=== PATIENT | male | born 1935 | race Caucasian/White ===

== ENCOUNTER → 2016-09-28 | Outpatient (CLI) | payer OTHER ==
[~2016-09-28] MED LIST: AMOXICILLIN500 MG; ASPIRIN EC325 MG; ASPIRIN325 MG PO; DARVOCET N 1001 TAB PO; DAYPRO600 M1 PO; GLIPIZIDE10 MG; GLIPIZIDE10 MG PO; GLUCOPHAGE1000 MG; JANUVIA50 MG PO; LEVEMIR10 ML SC; LEVOFLOXACIN500 MG PO; LISINOPRIL10 MG PO; MEDROL DOSEPAK4 MG PO; METFORMIN1000 MG PO; PLAVIX75 MG; PLAVIX75 MG PO; PRINIVIL5 MG; SIMVASTATIN80 MG; SIMVASTATIN80 MG PO; TYLENOL W/CODEI1 TA7; [UNRECOGNIZED DRUG - SUPPLY]
--- NOTE | ~2016-09-28 | PR ---
[place], [place] PROGRESS NOTE NAME: NIKI DAY UNIT #: [id number] ROOM: DOCTOR: JACOB GALVAN DPM BIRTHDATE: [birth year] DOS: 09/28/2016 SUBJECTIVE: The patient is seen for right plantar foot wound. The patient has had Hyaloxmatrix applied last week. He has left his bandage on, clean, dry and intact as directed and has no new complaints. PHYSICAL EXAMINATION: It is noted that the wound is decreasing in size quite readily. It currently measures 1.8 cm x 0.9 cm x 0.1 cm. Callus debris and slough was debrided with 15 blade from the surrounding tissue area. The patient tolerated procedure well. The debridement went through dermis. No bleeding was noted. IMPRESSION: Grade 2 diabetic ulceration, progressing well with current therapy. PLAN: 1. Evaluate. 2. We will use Puracol collagen and offloading bulky dressing and patient is to continue to ambulate in a surgical shoe. The patient will be seen next week as a nurse visit and then I will follow him up the next week in my clinic. He is to call if any problems arise in the meantime. JACOB GALVAN DPM CM:PK [phone] JACOB GALVAN DPM 09/28/16 1239 interface
== END ==
LOC: WOUNDCARE 03:10
DX: E11.621 Type 2 diabetes mellitus with foot ulcer (principal); L97.511 Non-pressure chronic ulcer of other part of right foot limited to breakdown of skin; L84 Corns and callosities

== ENCOUNTER → 2016-10-05 | Outpatient (CLI) | payer OTHER | LOC: WOUNDCARE 01:48 | DX: E11.621 Type 2 diabetes mellitus with foot ulcer (principal); L97.511 Non-pressure chronic ulcer of other part of right foot limited to breakdown of skin ==

== ENCOUNTER → 2016-10-12 | Outpatient (CLI) | payer OTHER ==
--- NOTE | ~2016-10-12 | PR ---
[place], [place] PROGRESS NOTE NAME: NIKI DAY UNIT #: [id number] ROOM: DOCTOR: JACOB GALVAN DPM BIRTHDATE: [birth year] DOS: 10/12/2016 SUBJECTIVE: This is an established patient seen for a diabetic grade 2 ulceration on the right plantar foot. He has kept his big football bandage on clean, dry, and intact, has no new complaints. PHYSICAL EXAMINATION: It is noted that the wound is significantly decreased in size at 1.2 cm x 0.5 cm x 0.1 cm. Callus tissue was debrided through dermis with a 15 blade and the patient tolerated procedure well. No bleeding was noted. IMPRESSION: Grade 2 diabetic ulceration, progressing very well with current therapy. PLAN: 1. Evaluate. 2. Debridement was performed. It is described above. We will reapply a football type bandage with Puracol to the base of the wound. Offloading layer of felted foam, ABDs, Kerlix, and Coban. The patient is to keep this on clean, dry, and intact for one week and then [facility] for followup next Tuesday. JACOB GALVAN DPM CM:[id number] JACOB GALVAN DPM 10/12/16 3478 interface
== END | disposition home or self-care (01) ==
LOC: WOUNDCARE 02:42
DX: E11.621 Type 2 diabetes mellitus with foot ulcer (principal); L97.511 Non-pressure chronic ulcer of other part of right foot limited to breakdown of skin; L84 Corns and callosities

== ENCOUNTER → 2016-10-19 | Outpatient (CLI) | payer OTHER ==
--- NOTE | ~2016-10-19 | PR ---
[place], [place] PROGRESS NOTE NAME: NIKI DAY UNIT #: [id number] ROOM: DOCTOR: JACOB GALVAN DPM BIRTHDATE: [birth year] DOS: 10/19/2016 SUBJECTIVE: The patient is seen for right plantar foot grade 2 diabetic ulceration. The patient has kept his football-type bandage on clean, dry, and intact and has no new complaints. PHYSICAL EXAMINATION: It is noted that the wound is healing. Currently, it measures 1 x 0.5 x 0.1 cm. Callus tissue and debris was debrided from the base of the tissue through dermis. Minimal bleeding was controlled with pressure. No signs of infection. IMPRESSION: Grade 2 diabetic ulcer, progressing very well with current therapy. PLAN: 1. Evaluate. 2. Debridement was performed. We will reapply Puracol and a football-type dressing. The patient will keep this on clean, dry, and intact and reappoint in 1 week. With any luck hopefully, this will be healed next week or the following week. JACOB GALVAN DPM CM:PK [id number] JACOB GALVAN DPM 10/20/16 1305 interface
== END ==
LOC: WOUNDCARE 03:28
DX: E11.621 Type 2 diabetes mellitus with foot ulcer (principal); L97.511 Non-pressure chronic ulcer of other part of right foot limited to breakdown of skin; L84 Corns and callosities

== ENCOUNTER → 2016-12-13 | Outpatient (CLI) | payer OTHER ==
[2016-12-13 09:51] LABS: BASO # 0.1 10*3/uL (0.0-0.1); BASO % 0.6 % (0.0-1.0); EOS # 0.2 10*3/uL (0.0-0.4); EOS % 2.4 % (1.0-4.0); HEMATOCRIT 34.8 % (42.0-52.0); HEMOGLOBIN 11.3 g/dl (14.0-18.0); LYMPH # 1.3 10*3/uL (1.3-4.4); LYMPH % 16.3 % (27.0-41.0); MEAN CELL VOLUME 83.3 fl (80.0-94.0); MEAN CORPUSCULAR HGB CONC 32.5 g/dl (33.0-37.0); MEAN PLATELET VOLUME 9.9 fl (9.6-12.3); MONO # 0.5 10*3/uL (0.1-1.0); NEUT % 74.2 % (47.0-73.0); PLATELET COUNT AUTOMATED 283 10*3/uL (130-400); RED BLOOD COUNT 4.18 10*6/uL (4.50-5.90); RED CELL DISTRI WIDTH 14.2 % (0-14.5); WHITE BLOOD COUNT 8.1 10*3/uL (4.8-10.8)
[2016-12-13 10:15] LABS: HEMOGLOBIN A1c 8.6 % (4.8-5.6)
[2016-12-13 10:27] LABS: ALBUMIN 2.6 gm/dl (3.1-4.5); BUN 9 mg/dl (7-24); CARBON DIOXIDE 29 mmol/L (21-32); CHLORIDE 101 mmol/L (98-107); GLUCOSE 329 mg/dL (65-99); POTASSIUM 3.8 mmol/L (3.5-5.1); SODIUM 140 mmol/L (136-145)
[2016-12-13 10:31] LABS: ALKALINE PHOSPHATASE 109 U/L (45-117); BILIRUBIN, TOTAL 0.3 mg/dl (0.2-1.0); EST GLOM FILT AFRICAN AMERICAN > 60 ml/min; SGOT/AST 12 IU/L (3-35); SGPT/ALT 14 U/L (12-78); TOTAL PROTEIN 6.9 gm/dL (6.4-8.2)
== END | disposition home or self-care (01) ==
LOC: LAB 09:24
PROVIDERS: Podiatrist Foot & Ankle Surgery
DX: E11.621 Type 2 diabetes mellitus with foot ulcer (principal); L97.519 Non-pressure chronic ulcer of other part of right foot with unspecified severity

== ENCOUNTER → 2016-12-13 | Outpatient (CLI) | payer OTHER ==
--- NOTE | ~2016-12-13 | PR ---
[place], [place] PROGRESS NOTE NAME: NIKI DAY [facility] #: [id number] UNIT #: [id number] ROOM: DOCTOR: RAFAEL ArguelloSABI BIRTHDATE: [birth year] DOS: 12/13/2016 CHIEF COMPLAINT: Followup of a diabetic foot ulcer. HISTORY OF PRESENT ILLNESS: The location of the wound is the plantar aspect of the right foot near the first metatarsal head. It is chronic and recurrent. It is grade 2. He has associated neuropathy, history of peripheral vascular disease. Recent culture grew Staph aureus as well as Enterobacter. He was placed initially on doxycycline. This was switched to ciprofloxacin, which covers both bacteria. He has difficulty offloading the area and comes in for a repeat evaluation today. This is Dr. Lal's patient. This is the first time I am seeing him as he normally sees Dr. Lal and she is unavailable this week. He has no specific complaints. He does complain of pain, but he says it is pain at the pinky toe of the right foot and his heel. He does not complain of pain near the wound. He is on oral antibiotics and is tolerating these. He has no fevers or chills. He has no complaints of any change in drainage. His physical exam shows vitals that are stable. Blood pressure is 138/90, pulse is 60, respirations 18, and temperature 98.4. ADDENDUM OBJECTIVE: wound examination: The wound is measuring the same as last week at 1.7 x 1.1 x 0.2. There is very thick amount of callus present. The wound itself does not appear tender. It does seem to have some chronic erythema present. A debridement was done. The tissue removed was nonviable callus as well as fibrin, slough and subcutaneous tissue. This was accomplished with a curette and a #15 blade. The post-debridement measurements are 1.9 x 1.2 x 0.2 in depth. There was absolutely no bleeding. The patient tolerated the debridement well. ASSESSMENT AND PLAN: Chronic diabetic foot ulcer, Amezquita stage 2, continued callus formation. He has not had any blood work done for some time, so I will go ahead and order some labs for him and see where his diabetic control is at. In addition, he has not had any recent vascular studies, so I would like to go ahead and order those as when I did further discuss with him that testing he said he has had intervention done in the past several years ago at [facility], so he does have a history of peripheral vascular disease as well, so we will go ahead and order that study. We will continue with a silver dressing and have him follow up with Dr. Lal in 1 week. Also, an MRI was ordered as well as the wound has been open for some time now, so this was also ordered. Follow up with Dr. Lal next week. [place], [place] PROGRESS NOTE NAME: NIKI DAY UNIT #: [id number] ROOM: DOCTOR: SABI HALL M.D. BIRTHDATE: [birth year] SABI HALL MD CM:PK [id number] SABI HALL M.D. 12/16/16 0647 interface
== END ==
LOC: WOUNDCARE 01:40
DX: E11.621 Type 2 diabetes mellitus with foot ulcer (principal); L97.512 Non-pressure chronic ulcer of other part of right foot with fat layer exposed; E11.51 Type 2 diabetes mellitus with diabetic peripheral angiopathy without gangrene; E11.40 Type 2 diabetes mellitus with diabetic neuropathy, unspecified

== ENCOUNTER → 2016-12-21 | Outpatient (CLI) | payer OTHER ==
--- NOTE | ~2016-12-21 | PR ---
[place], [place] PROGRESS NOTE NAME: NIKI DAY UNIT #: [id number] ROOM: DOCTOR: JACOB GALVAN DPM BIRTHDATE: [birth year] DOS: 12/21/2016 SUBJECTIVE: This is an established patient seen for plantar surface, right foot grade 2 diabetic ulcer. The patient had been seen last week by Dr. Hale and presents wearing his regular shoes and no offloading to the area. Apparently last week she ordered arterial studies as well as an MRI although x-rays were negative for any kind of bony abnormalities. PHYSICAL EXAMINATION: It is noted that the wound measures 1.8 x 1.1 x 0.2 cm. Negligible erythema or edema. No signs of infection, no odor. No deep tracking or abscess noted. There is callus tissue around the periphery of the wound, which was debrided through to dermis with a 15 blade. No bleeding was noted. The patient tolerated procedure well. IMPRESSION: Grade 2 diabetic ulceration on plantar surface of the right foot without any evidence of abscess or osteomyelitis. PLAN: 1. Evaluate. 2. Debridement was performed. We will use Puracol to the base of the wound felted foam dressing and a bulky padded football bandaged. Bandages to stay on clean, dry, and intact for 1 full week. I would like to see the patient back at the wound care center at that time for followup of this complaint. JACOB GALVAN DPM CM:PNTRANS [phone] JACOB GALVAN DPM 12/21/16 2020 interface
== END ==
LOC: WOUNDCARE 03:11
DX: E11.621 Type 2 diabetes mellitus with foot ulcer (principal); L97.512 Non-pressure chronic ulcer of other part of right foot with fat layer exposed; E11.51 Type 2 diabetes mellitus with diabetic peripheral angiopathy without gangrene

== ENCOUNTER → 2016-12-23 | Outpatient (CLI) | payer OTHER | END | disposition home or self-care (01) | LOC: US 12:28 | DX: S91.301A Unspecified open wound, right foot, initial encounter (principal); I73.9 Peripheral vascular disease, unspecified; E11.621 Type 2 diabetes mellitus with foot ulcer; M25.474 Effusion, right foot; Z89.431 Acquired absence of right foot; X58.XXXA Exposure to other specified factors, initial encounter; Y93.89 Activity, other specified; Y92.89 Other specified places as the place of occurrence of the external cause; Y99.8 Other external cause status ==

== ENCOUNTER → 2016-12-28 | Outpatient (CLI) | payer OTHER ==
--- NOTE | ~2016-12-28 | PR ---
[place], [place] PROGRESS NOTE NAME: NIKI DAY UNIT #: [id number] ROOM: DOCTOR: JACOB GALVAN DPM BIRTHDATE: [birth year] DOS: 12/28/2016 SUBJECTIVE: This is an established patient seen for right plantar foot grade 2 diabetic ulcer. The patient has left his football bandage dry, clean and intact without any new complaints. PHYSICAL EXAMINATION: It is noted that the ulcer looks good, it is very superficial, it is measuring 1.8 cm x 1 cm x 0.1 cm. There is a bit of callus around the periphery and some slough in the base of the wound. These areas were debrided with 15 blade through subcutaneous. Minimal bleeding was controlled with pressure. No signs of acute infection, cellulitis or abscess. IMPRESSION: Grade 2 diabetic ulceration, progressing well. PLAN: 1. Evaluate. 2. Dressing consisting of Hyalomatrix was applied to the area after an excisional debridement through subcutaneous was performed. A dry bulky football bandage was applied. The patient is to keep this on clean, dry, and intact for 1 week and to reappoint next week at the wound care center for a nurse visit. JACOB GALVAN DPM CM:PK [id number] JACOB GALVAN DPM 12/28/16 1152 interface
== END ==
LOC: WOUNDCARE 04:00
DX: E11.621 Type 2 diabetes mellitus with foot ulcer (principal); L97.512 Non-pressure chronic ulcer of other part of right foot with fat layer exposed; E11.51 Type 2 diabetes mellitus with diabetic peripheral angiopathy without gangrene; L84 Corns and callosities

== ENCOUNTER → 2017-01-04 | Outpatient (CLI) | payer OTHER | LOC: WOUNDCARE 01:54 | DX: E11.621 Type 2 diabetes mellitus with foot ulcer (principal); L97.512 Non-pressure chronic ulcer of other part of right foot with fat layer exposed; E11.51 Type 2 diabetes mellitus with diabetic peripheral angiopathy without gangrene ==

== ENCOUNTER → 2017-01-11 | Outpatient (CLI) | payer OTHER ==
--- NOTE | ~2017-01-11 | PR ---
[place], [place] PROGRESS NOTE NAME: NIKI DAY UNIT #: [id number] ROOM: DOCTOR: JACOB GALVAN DPM BIRTHDATE: [birth year] DOS: 01/11/2017 SUBJECTIVE: The patient was seen for plantar surface grade 2 diabetic ulceration, right foot. The patient has kept his football bandage on, clean, dry and intact. PHYSICAL EXAMINATION: It is noted that the wound is decreasing in size. Today, it currently measures 0.4 x 0.7 x 0.2 cm. Moderate callus tissue is found around the periphery of the wound. The base of the wound is relatively clean and healthy. No signs of infection noted. There was an area of excoriation on the dorsum of the foot, and this will be padding and protected today. IMPRESSION: Grade 2 diabetic ulceration, doing well with current therapies. PLAN: 1. Evaluate. 2. Debridement through to dermis was performed to remove callus tissue. Bleeding was noted afterwards in which silver nitrate was used to help control the area of bleeding, no signs of infection. The patient tolerated procedure well. We will put a football type bandage with a horseshoe padded dressing. The patient is to keep this on clean, dry, and intact for 1 week. He is to continue to wear his surgical shoe and will see him next week for his followup. He is to call if any problems arise in the meantime. JACOB GALVAN DPM CM:PNTRANS [phone] JACOB GALVAN DPM 01/11/1712 interface
== END ==
LOC: WOUNDCARE 04:19
DX: E11.621 Type 2 diabetes mellitus with foot ulcer (principal); L97.512 Non-pressure chronic ulcer of other part of right foot with fat layer exposed; E11.51 Type 2 diabetes mellitus with diabetic peripheral angiopathy without gangrene

== ENCOUNTER → 2017-01-18 | Outpatient (CLI) | payer OTHER ==
--- NOTE | ~2017-01-18 | PR ---
[place], [place] PROGRESS NOTE NAME: NIKI DAY UNIT #: [id number] ROOM: DOCTOR: COLE WATSONFRANCShey BIRTHDATE: [birth year] DOS: 01/18/2017 SUBJECTIVE: This is an established patient seen at [facility] for followup of right plantar foot wound. The patient also has a new complaint. He had a fall in his bedroom and scraped his lower leg on his bed. He has multiple new wounds secondary to this recent trauma. PHYSICAL EXAMINATION: It is noted that the right foot plantar injury, diabetic grade 2 ulcer measures 1.4 cm x 0.5 cm x 0.2 cm. An abundance of callus tissue and debris noted around the wound itself. This area was debrided through dermis with a 15 blade to remove callus and debris. The patient tolerated the procedure well. No signs of infection are noted in this area. The patient has new lower leg ulcers secondary to trauma, the first of which is the right midline anterior distal wound measuring 2 cm x 4.5 cm x 0.1 cm. Lower leg on the right anterior proximal trauma wound is 1.3 cm x 1 cm x 0.3 cm and the patient also has a wound on the right posterior lower extremity, which measures 3.5 cm x 1.5 cm x 0.1 cm. These wounds have some clear serous drainage coming from them. There is some surrounding cellulitis and erythema, and there is some pain to palpation of these wounds at this time. IMPRESSION: Grade 2 diabetic ulceration on plantar surface, right foot, progressing well. New wound secondary to trauma, complicated by peripheral vascular disease and edema, right lower leg with possible early cellulitis. PLAN: 1. Evaluate. 2. We will use Maxorb Ag to the lower leg wounds. We will use Puracol and offloading bandage to the plantar surface of the right foot. We also apply multilayer compression to help with the swelling and the drainage to the right leg. The patient will have a nurse visit on Tuesday to change the multilayer compression wrap and evaluate the wounds. The patient was started on doxycycline hyclate 100 mg tablets to take one tablet p.o. b.i.d. Again, reappoint on Tuesday for a nurse visit and the [facility] on Tuesday for a wound care visit. He is to call if any problems arise in the meantime. [place], [place] PROGRESS NOTE NAME: NIKI DAY UNIT #: [id number] ROOM: DOCTOR: JACOB GALVAN DPM BIRTHDATE: [birth year] JACOB GALVAN DPM CM:PK JACOB GALVAN DPM 01/18/17 0939 interface
== END ==
LOC: WOUNDCARE 01:05
DX: E11.621 Type 2 diabetes mellitus with foot ulcer (principal); L97.512 Non-pressure chronic ulcer of other part of right foot with fat layer exposed; E11.51 Type 2 diabetes mellitus with diabetic peripheral angiopathy without gangrene; L84 Corns and callosities

== ENCOUNTER → 2017-01-25 | Outpatient (CLI) | payer OTHER ==
--- NOTE | ~2017-01-25 | PR ---
[place], [place] PROGRESS NOTE NAME: NIKI DAY UNIT #: [id number] ROOM: DOCTOR: JACOB GALVAN DPM BIRTHDATE: [birth year] DOS: 01/25/2017 SUBJECTIVE: The patient was seen for followup of right lower extremity ulcerations as well as right plantar foot diabetic ulceration. The patient has left the bandage dry, clean and intact as directed. PHYSICAL EXAMINATION: It is noted that all wounds are improving. Right plantar foot wound measures 0.8 x 0.5 x 0.2. The right distal midline anterior lower leg measures 1.2 x 4 x 0.1, right proximal anterior leg wound is 1 x 0.3 x 0.1 and the right posterior lower leg wound is 3.4 x 3 x 0.1. All areas have slough and devitalized tissue present, which was debrided through to subcutaneous with a 15 blade. Minimal bleeding controlled with pressure and silver nitrate. No signs of infection or any other abnormalities noted. IMPRESSION: Partial thickness venous ulcers, right lower leg improved and grade 2 diabetic ulceration of the right plantar foot, improved. PLAN: 1. Evaluate. 2. Debridement was performed. We will continue with Maxorb on the leg, but we will put an interface of Adaptic so that it will decrease adhesion of the product to the wounds. We will continue with Puracol and offloading with a big football type dressing, and the patient will be seen next week. He is to keep these on clean, dry, and intact and to call if any problems should arise in the meantime. JACOB GALVAN DPM CM:PNTRANS [phone] JACOB GALVAN DPM 01/26/17 0205 interface
== END ==
LOC: WOUNDCARE 04:09
DX: E11.621 Type 2 diabetes mellitus with foot ulcer (principal); I87.2 Venous insufficiency (chronic) (peripheral); L97.512 Non-pressure chronic ulcer of other part of right foot with fat layer exposed; E11.51 Type 2 diabetes mellitus with diabetic peripheral angiopathy without gangrene; E11.622 Type 2 diabetes mellitus with other skin ulcer; L97.811 Non-pressure chronic ulcer of other part of right lower leg limited to breakdown of skin

== ENCOUNTER → 2017-02-01 | Outpatient (CLI) | payer OTHER ==
--- NOTE | ~2017-02-01 | PR ---
[place], [place] PROGRESS NOTE NAME: NIKI DAY UNIT #: [id number] ROOM: DOCTOR: JACOB GALVAN DPM BIRTHDATE: [birth year] DOS: 02/01/2017 SUBJECTIVE: The patient is seen for right partial thickness venous leg ulcers and right plantar foot grade 2 diabetic ulcer. The patient has kept the bandages on clean, dry, and intact. No new complaints. PHYSICAL EXAMINATION: It is noted that the plantar surface, right foot ulcer is very small at 1.1 x 0.2 x 0.1 cm. No debridement was performed. No callus formation. No signs of infection or any other contributing factors were noted within this lesion. Right lower leg anterior wound is 0.1 x 0.1 x 0.1 and scab covered. This callousy nonvitalized tissue was debrided through dermis, minimal bleeding was controlled via pressure. Right proximal leg ulceration also has a thin scab over this area at 0.1 x 0.1 x 0.1 cm. This area was removed and minimal bleeding was noted to this area as well. The patient tolerated procedures well. No signs of infection or other complications noted. IMPRESSION: Partial thickness venous ulcers are progressing well, right lower leg and grade 2 diabetic ulceration also progressing well on plantar surface of the right foot. PLAN: We will continue with Puracol and a big bulky football type dressing with felted foam offloading area to the right foot and Adaptic and compression to the right lower leg. The patient is to reappoint in 1 week for followup of this complaint. JACOB GALVAN DPM CM:PNTRANS [phone] JACOB GALVAN DPM 02/02/17 0255 interface
== END ==
LOC: WOUNDCARE 03:48
DX: E11.621 Type 2 diabetes mellitus with foot ulcer (principal); L97.512 Non-pressure chronic ulcer of other part of right foot with fat layer exposed; I87.2 Venous insufficiency (chronic) (peripheral); L97.821 Non-pressure chronic ulcer of other part of left lower leg limited to breakdown of skin; E11.51 Type 2 diabetes mellitus with diabetic peripheral angiopathy without gangrene

== ENCOUNTER → 2017-02-08 | Outpatient (CLI) | payer OTHER ==
--- NOTE | ~2017-02-08 | PR ---
[place], [place] PROGRESS NOTE NAME: NIKI DAY UNIT #: [id number] ROOM: DOCTOR: JACOB GALVAN DPM BIRTHDATE: [birth year] DOS: 02/08/2017 SUBJECTIVE: The patient is seen for right lower leg partial thickness venous ulcers and right plantar foot grade 2 diabetic ulcer. The patient has been compliant with wound care and has no new complaints. PHYSICAL EXAMINATION: Upon physical exam, it is noted that the right plantar foot wound is improved. It currently measures 0.5 cm x 0.3 cm x 0.2 cm. Devitalized tissue, callus and debris was debrided from around the periphery of the wound through subQ. The patient tolerated the procedure well. No bleeding was noted. No signs of infection, deep abscess or any other problems with the debridement. Right lower leg, stable and improved. Right lower leg midline wound is 0.1 x 0.1 x 0.1 and essentially has a thin callus tissue scab over top of it and right lower leg anterior ulcer was closed over with a thin scab at 0.1 x 0.1 x 0.1. Cellulitis has resolved, although there is some erythema around the wound secondary to hyperemia. IMPRESSION: Grade 2 diabetic ulceration, plantar surface, right foot, improved. Right lower leg partial thickness venous ulcers, also improved. PLAN: 1. Evaluate. 2. Debridement was performed to the plantar surface, right foot wound. We will continue with Puracol, an offloading felted foam, horseshoe shaped pad and big bulky football type dressing and a surgical shoe. We also wrapped his lower legs and an Adaptic and a dry pseudocompressive type dressing. The patient is to reappoint in 1 week at the [facility] for followup of this complaint. JACOB GALVAN DPM CM:PK [phone] JACOB GALVAN DPM 02/09/17 0141 interface
== END ==
LOC: WOUNDCARE 03:12
DX: E11.621 Type 2 diabetes mellitus with foot ulcer (principal); I87.2 Venous insufficiency (chronic) (peripheral); L97.811 Non-pressure chronic ulcer of other part of right lower leg limited to breakdown of skin; L97.512 Non-pressure chronic ulcer of other part of right foot with fat layer exposed; L84 Corns and callosities

== ENCOUNTER → 2017-02-15 | Outpatient (CLI) | payer OTHER ==
--- NOTE | ~2017-02-15 | PR ---
[place], [place] PROGRESS NOTE NAME: NIKI DAY UNIT #: [id number] ROOM: DOCTOR: JACOB GALVAN DPM BIRTHDATE: [birth year] DOS: 02/15/2017 SUBJECTIVE: The patient was seen for followup of right plantar foot ulceration as well as venous leg ulcers of the right lower leg. He has kept his bulky bandage on, clean, dry and intact and no new complaints. PHYSICAL EXAMINATION: EXTREMITIES: It is noted that upon debridement of all the lower leg ulcerations, there are no open wounds noted in the lower leg. There is some dermatitis still present, but no open or draining wounds on the leg. Right plantar foot does still have an open wound which measures 0.3 x 0.1 x 0.1. Callus tissue and debris was debrided through subcutaneous. There is moderate bleeding controlled via pressure and silver nitrate. The patient tolerated procedure well. No signs of infection noted. IMPRESSION: Healed venous wounds. Right lower leg and grade 2 diabetic ulceration, improving right plantar foot. PLAN: 1. Evaluate. 2. Debridement was performed. We will continue with Puracol and offloading horseshoe shaped pad and a bulky football type dressing. The patient will be seen in 1 week for followup. He was also given a prescription for triamcinolone acetonide for the dermatitis. He is to apply daily to the area. JACOB GALVAN DPM CM:PNTRANS [phone] JACOB GALVAN DPM 02/16/17 0143 interface
== END ==
LOC: WOUNDCARE 01:23
DX: E11.621 Type 2 diabetes mellitus with foot ulcer (principal); L97.512 Non-pressure chronic ulcer of other part of right foot with fat layer exposed; E11.622 Type 2 diabetes mellitus with other skin ulcer; L97.811 Non-pressure chronic ulcer of other part of right lower leg limited to breakdown of skin; E11.51 Type 2 diabetes mellitus with diabetic peripheral angiopathy without gangrene

== ENCOUNTER → 2017-02-22 | Outpatient (CLI) | payer OTHER ==
--- NOTE | ~2017-02-22 | PR ---
[place], [place] PROGRESS NOTE [facility]: [id number] #: [id number] ROOM: DOCTOR: JACOB GALVAN DPM BIRTHDATE: [birth year] DOS: 02/22/2017 SUBJECTIVE: The patient was seen for followup of plantar surface, right foot grade 2 diabetic ulceration. He has also had a reoccurrence of ulceration on the right lower extremity. 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 PHYSICAL EXAMINATION: It is noted that the plantar foot wound is very small at 0.2 x 0.2 x 0.1. No devitalized tissue or complications noted. No debridement was performed on this region. Right lower leg midline has an open wound that is measuring 2 x 2.5 x 0.1 cm. There is some erythema around the wound with increased warmth and some serous drainage, debridement of devitalized tissue through subcutaneous to remove slough, debris and necrotic tissue was performed with a 15-blade and pickup. The patient tolerated procedure well. IMPRESSION: Grade 2 plantar surface ulceration, right foot, progressing well. Reoccurrence of right lower extremity wound, possibly due to trauma with cellulitis. PLAN: 1. Evaluate. 2. Debridement was performed on the leg wound. We will use Adaptic and Maxorb and a dry dressing to this area. A dry bulky football dressing was applied to the right foot. The patient was placed on doxycycline 100 mg tablets. He is to take 1 tablet p.o. b.i.d. Apparently, he is supposed to get his diabetic shoes this week. He is told to bring them to his next appointment. I am hopeful that his foot wound will be healed at that point in time and we can transition into regular shoes. The patient will be followed next week for these complaints. JACOB GALVAN DPM CM:PNTRANS [phone] JACOB GALVAN DPM 02/22/17 1037 interface
== END | disposition home or self-care (01) ==
LOC: WOUNDCARE 02:42
DX: S81.801D Unspecified open wound, right lower leg, subsequent encounter (principal); E11.621 Type 2 diabetes mellitus with foot ulcer; L97.512 Non-pressure chronic ulcer of other part of right foot with fat layer exposed; E11.51 Type 2 diabetes mellitus with diabetic peripheral angiopathy without gangrene; X58.XXXD Exposure to other specified factors, subsequent encounter

== ENCOUNTER → 2017-03-01 | Outpatient (CLI) | payer OTHER ==
--- NOTE | ~2017-03-01 | PR ---
[place], [place] PROGRESS NOTE NAME: NIKI DAY UNIT #: [id number] ROOM: DOCTOR: JACOB GALVAN DPM BIRTHDATE: [birth year] DOS: 03/01/2017 SUBJECTIVE: The patient seen for a followup of right lower leg ulcer and right foot ulcer plantarly. Today, the patient presents with his bandage on, clean, dry and intact. No new complaints. PHYSICAL EXAMINATION: It is noted that the right foot plantar ulcer prior to debridement is 0.2 cm x 0.1 cm x 0.1 cm. There is a blister formation which is noted that was debrided through to dermis and the wound was debrided through subcutaneous. The area then measures 0.3 cm x 0.2 cm x 0.2 cm. Clear fluid was noted. No signs of infection. Base of the wound is beefy red and granular post-debridement. Right lower leg midline wound is crusted over at 0.1 x 0.1 x 0.1. Erythema and edema have resolved. No drainage and no need for debridement in this area at this time. IMPRESSION: Right lower leg trauma complicated by peripheral vascular disease, wound progressing well. Right lower leg grade 2 diabetic ulceration with blister formation. PLAN: 1. Evaluate. 2. Debridement was performed as described above. We will use Maxorb Ag with a dry bulky dressing to the foot and Adaptic and a dry dressing to the leg. The patient is to keep these on, clean, dry, and intact and reappoint in 1 week for followup. JACOB GALVAN DPM CM:PNTRANS [phone] JACOB GALVAN DPM 03/01/17 2234 interface
== END ==
LOC: WOUNDCARE 03:25
DX: E11.621 Type 2 diabetes mellitus with foot ulcer (principal); L97.512 Non-pressure chronic ulcer of other part of right foot with fat layer exposed; E11.622 Type 2 diabetes mellitus with other skin ulcer; L97.811 Non-pressure chronic ulcer of other part of right lower leg limited to breakdown of skin; E11.51 Type 2 diabetes mellitus with diabetic peripheral angiopathy without gangrene

== ENCOUNTER → 2017-03-08 | Outpatient (CLI) | payer OTHER ==
--- NOTE | ~2017-03-08 | PR ---
[place], [place] PROGRESS NOTE NAME: NIKI DAY UNIT #: [id number] ROOM: DOCTOR: JACOB GALVAN DPM BIRTHDATE: [birth year] DOS: 03/08/2017 The patient seen for bilateral lower extremity ulcerations today. The patient presents with both ulcerations on the leg and the foot heal that is completely epithelialized. No open wounds exist. The patient will be discharged as healed for this complaint. He is to follow up with his extra hand. They have ordered diabetic shoes months ago. I did call the office last week and was told that they were on backorder, they were uncertain when they were going to be arriving, but concerned that if the patient does not get his diabetic shoes, he will continue to ulcerate and be back with the recurrence of this wound. The patient is to follow up with his extra hand and hopefully get his shoes as soon as possible. JACOB GALVAN DPM CM:PNTRANS [id number] JACOB GALVAN DPM 03/08/17 2340 interface
== END ==
LOC: WOUNDCARE 02:04
DX: E11.621 Type 2 diabetes mellitus with foot ulcer (principal); L97.512 Non-pressure chronic ulcer of other part of right foot with fat layer exposed; L97.521 Non-pressure chronic ulcer of other part of left foot limited to breakdown of skin; E11.622 Type 2 diabetes mellitus with other skin ulcer; L97.821 Non-pressure chronic ulcer of other part of left lower leg limited to breakdown of skin; L97.811 Non-pressure chronic ulcer of other part of right lower leg limited to breakdown of skin; E11.51 Type 2 diabetes mellitus with diabetic peripheral angiopathy without gangrene

== ENCOUNTER → 2017-03-22 | Outpatient (CLI) | payer OTHER ==
[2017-03-22 11:25] LABS: BASO % 0.6 % (0.0-1.0); EOS # 0.1 10*3/uL (0.0-0.4); EOS % 1.6 % (1.0-4.0); HEMATOCRIT 35.6 % (42.0-52.0); HEMOGLOBIN 11.3 g/dl (14.0-18.0); LYMPH # 1.4 10*3/uL (1.3-4.4); LYMPH % 19.9 % (27.0-41.0); MEAN CELL VOLUME 86.2 fl (80.0-94.0); MEAN CORPUSCULAR HGB 27.4 pg (27.0-31.0); MEAN CORPUSCULAR HGB CONC 31.7 g/dl (33.0-37.0); MEAN PLATELET VOLUME 9.7 fl (9.6-12.3); MONO # 0.6 10*3/uL (0.1-1.0); MONO % 8.2 % (3.0-9.0); NEUT # 4.9 10*3/uL (2.3-7.9); NEUT % 69.6 % (47.0-73.0); PLATELET COUNT AUTOMATED 261 10*3/uL (130-400); RED BLOOD COUNT 4.13 10*6/uL (4.50-5.90); RED CELL DISTRI WIDTH 13.8 % (0-14.5); WHITE BLOOD COUNT 7.1 10*3/uL (4.8-10.8)
[2017-03-22 11:53] LABS: ALBUMIN 2.4 gm/dl (3.1-4.5); ALKALINE PHOSPHATASE 99 U/L (45-117); BILIRUBIN, TOTAL 0.3 mg/dl (0.2-1.0); BUN 11 mg/dl (7-24); CARBON DIOXIDE 28 mmol/L (21-32); CHLORIDE 106 mmol/L (98-107); EST GLOM FILT AFRICAN AMERICAN > 60 ml/min; GLUCOSE 145 mg/dL (65-99); POTASSIUM 3.5 mmol/L (3.5-5.1); PREALBUMIN 18 mg/dl (20-40); SGOT/AST 13 IU/L (3-35); SGPT/ALT 13 U/L (12-78); SODIUM 141 mmol/L (136-145); TOTAL PROTEIN 6.7 gm/dL (6.4-8.2)
[2017-03-22 11:54] LABS: HEMOGLOBIN A1c 9.2 % (4.8-5.6)
== END | disposition home or self-care (01) ==
LOC: WOUNDCARE 01:19 → LAB 01:19 → WOUNDCARE 10:59
DX: E11.621 Type 2 diabetes mellitus with foot ulcer (principal); L97.512 Non-pressure chronic ulcer of other part of right foot with fat layer exposed; I73.9 Peripheral vascular disease, unspecified

== ENCOUNTER → 2017-03-24 | Outpatient (CLI) | payer OTHER | LOC: WOUNDCARE 08:34 | DX: E11.621 Type 2 diabetes mellitus with foot ulcer (principal); L97.512 Non-pressure chronic ulcer of other part of right foot with fat layer exposed; S80.821D Blister (nonthermal), right lower leg, subsequent encounter; E11.51 Type 2 diabetes mellitus with diabetic peripheral angiopathy without gangrene; L25.8 Unspecified contact dermatitis due to other agents; M79.89 Other specified soft tissue disorders; X58.XXXD Exposure to other specified factors, subsequent encounter ==

== ENCOUNTER → 2017-03-28 | Outpatient (CLI) | payer OTHER | LOC: WOUNDCARE 02:05 | DX: E11.621 Type 2 diabetes mellitus with foot ulcer (principal); E11.51 Type 2 diabetes mellitus with diabetic peripheral angiopathy without gangrene; L97.512 Non-pressure chronic ulcer of other part of right foot with fat layer exposed; S80.821D Blister (nonthermal), right lower leg, subsequent encounter; L25.8 Unspecified contact dermatitis due to other agents; L03.115 Cellulitis of right lower limb; E64.0 Sequelae of protein-calorie malnutrition; R60.0 Localized edema; X58.XXXD Exposure to other specified factors, subsequent encounter ==

== ENCOUNTER → 2017-04-01 | Outpatient (CLI) | payer OTHER | LOC: WOUNDCARE 03:09 | DX: E11.621 Type 2 diabetes mellitus with foot ulcer (principal); L97.512 Non-pressure chronic ulcer of other part of right foot with fat layer exposed; E11.51 Type 2 diabetes mellitus with diabetic peripheral angiopathy without gangrene; E64.0 Sequelae of protein-calorie malnutrition ==

== ENCOUNTER → 2017-04-04 | Outpatient (CLI) | payer OTHER | LOC: WOUNDCARE 11:53 | DX: E11.621 Type 2 diabetes mellitus with foot ulcer (principal); L97.512 Non-pressure chronic ulcer of other part of right foot with fat layer exposed; L03.115 Cellulitis of right lower limb; E64.0 Sequelae of protein-calorie malnutrition; E11.51 Type 2 diabetes mellitus with diabetic peripheral angiopathy without gangrene ==

== ENCOUNTER → 2017-04-08 | Outpatient (CLI) | payer OTHER | LOC: WOUNDCARE 02:47 | DX: E11.621 Type 2 diabetes mellitus with foot ulcer (principal); L97.512 Non-pressure chronic ulcer of other part of right foot with fat layer exposed; E11.51 Type 2 diabetes mellitus with diabetic peripheral angiopathy without gangrene; E64.0 Sequelae of protein-calorie malnutrition ==

== ENCOUNTER → 2017-04-15 | Outpatient (CLI) | payer OTHER ==
--- NOTE | ~2017-04-15 | PR ---
[place], [place] PROGRESS NOTE NAME: NIKI DAY UNIT #: [id number] ROOM: DOCTOR: JACOB GALVAN DPM BIRTHDATE: [birth year] DOS: 04/15/2017 SUBJECTIVE: The patient was seen for followup of right plantar foot wound and right lower leg. The patient has kept the bandage on, clean, dry and intact without any new complaints. PHYSICAL EXAMINATION: It is noted that the right foot plantar grade 2 diabetic ulceration has improved in quality and in measurement; it is measuring 0.7 x 0.8 x 0.2 cm. Callus tissue and debris was debrided around the periphery of the wound. There was no bleeding noted. The patient tolerated procedure well. Right lower leg has an area that is still open at 1.5 x 0.8 x 0.1 cm. No signs of infection or any other abnormalities noted. No debridement was performed at this time for this area. IMPRESSION: Diabetic ulcerations of the right lower extremity, all improving with current therapy. PLAN: 1. Evaluate. 2. Debridement was performed. We will continue to use Puracol and a bulky football dressing with an offloading felted foam horseshoe pad on the right and Adaptic and a dry dressing to the right lower leg. The patient will keep this on for a little over a week since I am out next Tuesday when he will be seen as a nurse visit following Tuesday at [facility] and then follow back for a wound visit that following Tuesday. He is to call if any problems arise in the meantime. ADDENDUM. Physical exam shows callus tissue and debris that was debrided subcutaneously to the area with a 15 blade to remove all devitalized tissue. PLAN: Subcutaneous excisional debridement was performed. JACOB GALVAN DPM CM:PK [id number] JACOB GALVAN DPM 04/29/17 1415 interface
== END | disposition home or self-care (01) ==
LOC: WOUNDCARE 02:23
DX: E11.621 Type 2 diabetes mellitus with foot ulcer (principal); L97.512 Non-pressure chronic ulcer of other part of right foot with fat layer exposed; E11.51 Type 2 diabetes mellitus with diabetic peripheral angiopathy without gangrene; E64.0 Sequelae of protein-calorie malnutrition; L84 Corns and callosities; L03.115 Cellulitis of right lower limb

== ENCOUNTER → 2017-04-25 | Outpatient (CLI) | payer OTHER | LOC: WOUNDCARE 02:49 | DX: E11.621 Type 2 diabetes mellitus with foot ulcer (principal); L97.512 Non-pressure chronic ulcer of other part of right foot with fat layer exposed; E11.51 Type 2 diabetes mellitus with diabetic peripheral angiopathy without gangrene; E64.0 Sequelae of protein-calorie malnutrition ==

== ENCOUNTER → 2017-04-29 | Outpatient (CLI) | payer OTHER ==
--- NOTE | ~2017-04-29 | PR ---
[place], [place] PROGRESS NOTE NAME: NIKI DAY UNIT #: [id number] ROOM: DOCTOR: JACOB GALVAN DPM BIRTHDATE: [birth year] DOS: 04/29/2017 SUBJECTIVE: The patient seen for right lower extremity ulcerations. He has no new complaints. PHYSICAL EXAMINATION: Upon physical exam, it is noted that right foot plantar surface wound continues to get smaller at 0.8 x 0.5 x 0.1. Slough tissue debris, callus tissue and devitalized tissue was debrided through the subQ. Minimal bleeding was controlled via pressure. No signs of active infection or other complications at this area. Right lower extremity still has a small open area 0.1 x 0.1 x 0.1. No debridement was performed here. Erythema and edema are controlled with the current dressing. IMPRESSION: Grade 2 diabetic ulceration right plantar foot and partial-thickness venous ulcer right lower leg progressing very well. PLAN: 1. Evaluate. 2. Debridement was performed as described above. We will continue with a football bandage with Puracol to the right foot and pseudo compression wrap therapy with Kerlix and Coban to the right leg. The patient will keep this bandage on clean, dry, and intact, and reappoint for [facility]. JACOB GALVAN DPM CM:PK [id number] JACOB GALVAN DPM 04/29/17 1247 interface
== END | disposition home or self-care (01) ==
LOC: WOUNDCARE 00:35
DX: E11.621 Type 2 diabetes mellitus with foot ulcer (principal); L97.512 Non-pressure chronic ulcer of other part of right foot with fat layer exposed; E11.51 Type 2 diabetes mellitus with diabetic peripheral angiopathy without gangrene; E64.0 Sequelae of protein-calorie malnutrition; L84 Corns and callosities

== ENCOUNTER → 2017-05-06 | Outpatient (CLI) | payer OTHER ==
--- NOTE | ~2017-05-06 | PR ---
[place], [place] PROGRESS NOTE NAME: NIKI DAY UNIT #: [id number] ROOM: DOCTOR: JACOB GALVAN DPM BIRTHDATE: [birth year] DOS: 05/06/2017 SUBJECTIVE: The patient is seen for right lower leg ulcer and right plantar foot ulcer. He has kept his bandage on clean, dry, and intact and has no new complaints. PHYSICAL EXAMINATION: It is noted that the right foot plantar wound has a measurement today, which is decreased in size, it is 0.4 x 0.3 x 0.1. Callus tissue and debris was debrided through subcutaneous. The patient tolerated procedure well and bleeding was noted, which was controlled via pressure. No signs of infection or any other abnormalities noted at this time. Right lower leg wound is stable, it has a dry area of eschar which measures 0.1 x 0.1 x 0.1. This was kept intact and not debrided. IMPRESSION: Right leg and foot wounds, progressing very well. PLAN: 1. Evaluate. 2. Debridement of plantar right foot wound through subcutaneous was performed. The patient will continue with Puracol and offloading with a big football type bandage and see him back next week. He has gotten his diabetic shoes. Hopefully, once the area is completely healed, we will transition him into his diabetic shoes and stop the cycle of reinjury to this area. JACOB GALVAN DPM CM:PNTRANS JACOB GALVAN DPM 05/06/17 0936 interface
== END | disposition home or self-care (01) ==
LOC: WOUNDCARE 03:43
DX: E11.621 Type 2 diabetes mellitus with foot ulcer (principal); L97.512 Non-pressure chronic ulcer of other part of right foot with fat layer exposed; E11.622 Type 2 diabetes mellitus with other skin ulcer; L97.811 Non-pressure chronic ulcer of other part of right lower leg limited to breakdown of skin; E11.51 Type 2 diabetes mellitus with diabetic peripheral angiopathy without gangrene; E64.0 Sequelae of protein-calorie malnutrition; L84 Corns and callosities

== ENCOUNTER → 2017-05-13 | Outpatient (CLI) | payer OTHER ==
--- NOTE | ~2017-05-13 | PR ---
[place], [place] PROGRESS NOTE NAME: NIKI DAY UNIT #: [id number] ROOM: DOCTOR: JACOB GALVAN DPM BIRTHDATE: [birth year] DOS: SUBJECTIVE: Right lower leg and right major foot ulcer. Follow up at the wound center on 05/13/2017. The patient has been wearing his football dressing and keeping his leg wrapped as directed. No new complaints other than he cannot get his new diabetic shoes on. He has not brought them today. He is wearing his old shoe on his contralateral limb. PHYSICAL EXAMINATION: It is noted that the right plantar foot wound is 0.3 x 0.3 x 0.1. Right lower leg midline wound is 0.1 x 0.1 x 0.1, but these areas were debrided of skin debris and devitalized tissue through subcutaneous. No signs of infection noted. It should be noted that all wounds are smaller and I believe he is close to complete healing at this time. IMPRESSION: Grade 2 diabetic ulceration, plantar surface, right foot, grade 1 ulceration of the right leg. Both progressing well. PLAN: 1. Evaluate. 2. Debridement was performed through subcutaneous as described. The patient will continue with the bulky offloading football type dressing and Puracol to the wound on the right foot and a pseudocompression wrap on the right leg. The patient is to keep this dry, clean and intact for 1 week. He is to bring his diabetic shoes into the wound center next week so that we can evaluate them and see why he is having a problem fitting into them. JACOB GALVAN DPM CM:PNTRANS [phone] JACOB GALVAN DPM 05/14/17 0958 interface
== END | disposition home or self-care (01) ==
LOC: WOUNDCARE 02:02
DX: E11.621 Type 2 diabetes mellitus with foot ulcer (principal); E11.622 Type 2 diabetes mellitus with other skin ulcer; L97.811 Non-pressure chronic ulcer of other part of right lower leg limited to breakdown of skin; L97.511 Non-pressure chronic ulcer of other part of right foot limited to breakdown of skin; E11.51 Type 2 diabetes mellitus with diabetic peripheral angiopathy without gangrene; E64.0 Sequelae of protein-calorie malnutrition

== ENCOUNTER → 2017-05-20 | Outpatient (CLI) | payer OTHER ==
--- NOTE | ~2017-05-20 | PR ---
[place], [place] PROGRESS NOTE NAME: NIKI DAY UNIT #: [id number] ROOM: DOCTOR: JACOB GALVAN DPM BIRTHDATE: [birth year] DOS: 05/20/2017 SUBJECTIVE: This is an established patient seen at [facility]. The patient is seen for right lower extremity ulcerations. No new complaints. He did bring his new diabetic shoes, but his right shoe does not have an insert in it for some reason. The patient states he thinks he has them at home. PHYSICAL EXAMINATION: It is noted that the wound on the right plantar foot looks great measuring 0.3 x 0.3 x 0.1. No callus tissue or devitalized tissue. No debridement is needed. No signs of infection. Right lower leg midline wound is stable at 0.1 x 0.1 x 0.1. It is eschar covered. No signs of infection or any other complications at this time. IMPRESSION: Diabetic ulcerations of the right leg and foot, progressing very well. PLAN 1. Evaluate. 2. Continue with Puracol and a dry football dressing to the right foot, Adaptic, and pseudocompression wrap to the right leg. The patient is to keep this on clean, dry, and intact. Reappoint in 1 week, and bring his inserts that go to his diabetic shoe. JACOB GALVAN DPM CM:PNMIKO 30 JACOB GALVAN DPM 05/20/17 2331 interface
== END | disposition home or self-care (01) ==
LOC: WOUNDCARE 02:59
DX: E11.621 Type 2 diabetes mellitus with foot ulcer (principal); L97.512 Non-pressure chronic ulcer of other part of right foot with fat layer exposed; E11.622 Type 2 diabetes mellitus with other skin ulcer; L97.811 Non-pressure chronic ulcer of other part of right lower leg limited to breakdown of skin; E11.51 Type 2 diabetes mellitus with diabetic peripheral angiopathy without gangrene; E64.0 Sequelae of protein-calorie malnutrition

== ENCOUNTER → 2017-05-27 | Outpatient (CLI) | payer OTHER ==
--- NOTE | ~2017-05-27 | PR ---
[place], [place] PROGRESS NOTE NAME: NIKI DAY UNIT #: [id number] ROOM: DOCTOR: JACOB GALVAN DPM BIRTHDATE: [birth year] DOS: 05/27/2017 SUBJECTIVE: The patient was seen for followup of right plantar foot and right lower leg ulcers. The patient did bring his diabetic shoes, although they do not have diabetic multi-density insoles with him. PHYSICAL EXAMINATION: It is noted that the right plantar foot ulcer is essentially healed. Right midline lower leg ulcer is healed. The patient does have a new ulcer though. It appears that the Kerlix has rubbed the posterior aspect of his right lower leg wound that measures 2.3 x 1.7 x 0.1 cm, is superficial, no need for debridement, but it seems to have been a blistered area that has popped probably from rubbing on his dressing. IMPRESSION: Right plantar foot healed. Right midline lower leg wound healed, but new wound right posterior leg due to bandage irritation. PLAN: We will use Puracol and a bordered foam to that area, I did make a cutout on his inserts that he has for his shoe in order to offload the great toe. I want him to start to ambulate in that shoe to see if that would be appropriate for offloading and we will see what type of permanent device we will get made for him if that seems to be adequate. I would like to see the patient back in 1 week for followup of these complaints. JACOB GALVAN DPM CM:PNTRANS [id number] JACOB GALVAN DPM 05/27/17 1837 interface
== END | disposition home or self-care (01) ==
LOC: WOUNDCARE 00:24
DX: E11.621 Type 2 diabetes mellitus with foot ulcer (principal); L97.512 Non-pressure chronic ulcer of other part of right foot with fat layer exposed; E11.622 Type 2 diabetes mellitus with other skin ulcer; L97.811 Non-pressure chronic ulcer of other part of right lower leg limited to breakdown of skin; E11.69 Type 2 diabetes mellitus with other specified complication; E64.0 Sequelae of protein-calorie malnutrition

== ENCOUNTER → 2017-06-03 | Outpatient (CLI) | payer OTHER ==
--- NOTE | ~2017-06-03 | PR ---
[place], [place] PROGRESS NOTE NAME: NIKI DAY UNIT #: [id number] ROOM: DOCTOR: JACOB GALVAN DPM BIRTHDATE: [birth year] DOS: 06/03/2017 SUBJECTIVE: This is an established patient seen for followup of right plantar foot ulcer and lower leg ulcers. The patient had been ambulating in normal shoes. He was to find his diabetic insoles and bring them in today, he did not. He had his lower leg wrapped and the bandage was on clean, dry, and intact. PHYSICAL EXAMINATION: It is noted that the plantar foot wound does have a callus tissue that is very macerated measuring 0.1 x 0.1 x 0.1. This tissue was removed and there is a small open area noted, most likely due to the fact that the patient keep the bandage on even though he was told to change it daily. Right lower leg midline ulcer is resolved. Right lower leg posterior ulcer is still present, 0.5 x 1.5 x 0.1, this area was not debrided today. The plantar right foot area was debrided of debris, callus and devitalized tissue through subcutaneous. No bleeding was noted. IMPRESSION: Grade 2 diabetic ulcer and partial thickness venous ulcer, right lower leg, stable. PLAN: 1. Evaluate. 2. We used alginate and a bandage that is to be changed every day on the right foot. The patient is to find a diabetic insole and bring it next visit, so that we could put it in his shoe to help offload the area. Right lower leg ulcer will also have alginate and a dry dressing put on. The patient is to keep this on clean, dry, and intact and reappoint in 1 week for followup. JACOB GALVAN DPM CM:PK [id number] JACOB GALVAN DPM 06/03/17 1048 interface
== END | disposition home or self-care (01) ==
LOC: WOUNDCARE 02:45
DX: E11.621 Type 2 diabetes mellitus with foot ulcer (principal); L97.512 Non-pressure chronic ulcer of other part of right foot with fat layer exposed; I87.2 Venous insufficiency (chronic) (peripheral); E11.51 Type 2 diabetes mellitus with diabetic peripheral angiopathy without gangrene; E64.0 Sequelae of protein-calorie malnutrition; L84 Corns and callosities

== ENCOUNTER → 2017-06-10 | Outpatient (CLI) | payer OTHER ==
--- NOTE | ~2017-06-10 | PR ---
[place], [place] PROGRESS NOTE NAME: NIKI DAY UNIT #: [id number] ROOM: DOCTOR: JACOB GALVAN DPM BIRTHDATE: [birth year] DOS: 06/10/2017 SUBJECTIVE: The patient was seen for followup of right lower leg and right plantar foot ulcer. He has been ambulating in his diabetic shoes. He did not have proper inserts. I did try to cut out the insert that was in the shoe, but today, he brought his proper diabetic inserts with him. PHYSICAL EXAMINATION: It is noted that the right plantar foot has a small open area still that measures 0.5 x 0.3 x 0.1. This area was debrided through subcutaneous with 15 blade to remove slough, debris and devitalized tissue. Right lower leg midline wound appears healed and so does right lower leg posterior wound. These areas will only be covered with a Tubigrip at this time. IMPRESSION: Grade 2 diabetic ulceration of the right plantar foot, still open; leg is healing well. PLAN: 1. Evaluate. 2. Debridement as described. I changed out his inserts for his diabetic shoes to include the diabetic offloading insert with spacer for toe amp. The patient is to ambulate in this device and apply Maxorb and a bordered foam to the area every other day. I would like to see him back next week for followup of this complaint. JACOB GALVAN DPM CM:PNTRANS [phone] JACOB GALVAN DPM 06/10/17 1258 interface
== END | disposition home or self-care (01) ==
LOC: WOUNDCARE 02:39
DX: E11.621 Type 2 diabetes mellitus with foot ulcer (principal); L97.512 Non-pressure chronic ulcer of other part of right foot with fat layer exposed; E11.51 Type 2 diabetes mellitus with diabetic peripheral angiopathy without gangrene; E11.622 Type 2 diabetes mellitus with other skin ulcer; L97.811 Non-pressure chronic ulcer of other part of right lower leg limited to breakdown of skin; E64.0 Sequelae of protein-calorie malnutrition

== ENCOUNTER → 2017-06-17 | Outpatient (CLI) | payer OTHER | END | disposition home or self-care (01) | LOC: WOUNDCARE 02:09 | DX: E11.621 Type 2 diabetes mellitus with foot ulcer (principal); L97.512 Non-pressure chronic ulcer of other part of right foot with fat layer exposed; E11.51 Type 2 diabetes mellitus with diabetic peripheral angiopathy without gangrene; E11.622 Type 2 diabetes mellitus with other skin ulcer; L97.811 Non-pressure chronic ulcer of other part of right lower leg limited to breakdown of skin; E78.5 Hyperlipidemia, unspecified; I10 Essential (primary) hypertension; E11.40 Type 2 diabetes mellitus with diabetic neuropathy, unspecified; E11.36 Type 2 diabetes mellitus with diabetic cataract; E46 Unspecified protein-calorie malnutrition; Z68.1 Body mass index [BMI] 19.9 or less, adult; Z85.46 Personal history of malignant neoplasm of prostate ==

== ENCOUNTER → 2017-06-24 | Outpatient (CLI) | payer OTHER | END | disposition home or self-care (01) | LOC: WOUNDCARE 01:40 | DX: E11.621 Type 2 diabetes mellitus with foot ulcer (principal); L97.511 Non-pressure chronic ulcer of other part of right foot limited to breakdown of skin; E11.622 Type 2 diabetes mellitus with other skin ulcer; L97.821 Non-pressure chronic ulcer of other part of left lower leg limited to breakdown of skin; L97.811 Non-pressure chronic ulcer of other part of right lower leg limited to breakdown of skin; E78.5 Hyperlipidemia, unspecified; I10 Essential (primary) hypertension; M19.90 Unspecified osteoarthritis, unspecified site; E11.40 Type 2 diabetes mellitus with diabetic neuropathy, unspecified; E11.36 Type 2 diabetes mellitus with diabetic cataract; Z85.46 Personal history of malignant neoplasm of prostate ==

== ENCOUNTER → 2017-07-06 | Outpatient (CLI) | payer OTHER | END | disposition home or self-care (01) | LOC: WOUNDCARE 03:58 | DX: E11.621 Type 2 diabetes mellitus with foot ulcer (principal); L97.512 Non-pressure chronic ulcer of other part of right foot with fat layer exposed; E11.622 Type 2 diabetes mellitus with other skin ulcer; L97.811 Non-pressure chronic ulcer of other part of right lower leg limited to breakdown of skin; E11.51 Type 2 diabetes mellitus with diabetic peripheral angiopathy without gangrene; E64.0 Sequelae of protein-calorie malnutrition; E78.5 Hyperlipidemia, unspecified; I10 Essential (primary) hypertension; M19.90 Unspecified osteoarthritis, unspecified site; E11.40 Type 2 diabetes mellitus with diabetic neuropathy, unspecified; E11.36 Type 2 diabetes mellitus with diabetic cataract; Z85.46 Personal history of malignant neoplasm of prostate ==

== ENCOUNTER → 2017-07-13 | Outpatient (CLI) | payer OTHER | END | disposition home or self-care (01) | LOC: WOUNDCARE 01:07 | DX: E11.621 Type 2 diabetes mellitus with foot ulcer (principal); L97.512 Non-pressure chronic ulcer of other part of right foot with fat layer exposed; E11.622 Type 2 diabetes mellitus with other skin ulcer; L97.811 Non-pressure chronic ulcer of other part of right lower leg limited to breakdown of skin; E11.51 Type 2 diabetes mellitus with diabetic peripheral angiopathy without gangrene; E64.0 Sequelae of protein-calorie malnutrition; E78.5 Hyperlipidemia, unspecified; I10 Essential (primary) hypertension; M19.90 Unspecified osteoarthritis, unspecified site; E11.40 Type 2 diabetes mellitus with diabetic neuropathy, unspecified; E11.36 Type 2 diabetes mellitus with diabetic cataract; Z85.46 Personal history of malignant neoplasm of prostate ==

== ENCOUNTER → 2017-07-20 | Outpatient (CLI) | payer OTHER | END | disposition home or self-care (01) | LOC: WOUNDCARE 04:32 → RAD 04:32 → WOUNDCARE 11:43 | DX: E11.621 Type 2 diabetes mellitus with foot ulcer (principal); G57.61 Lesion of plantar nerve, right lower limb; I73.9 Peripheral vascular disease, unspecified; L97.512 Non-pressure chronic ulcer of other part of right foot with fat layer exposed; E64.0 Sequelae of protein-calorie malnutrition ==

== ENCOUNTER 2017-07-27 09:48 | Emergency (ER) | payer OTHER ==
[~2017-07-27] VITALS: Wt 81.6 kg
[2017-07-27 10:06] VITALS: BP 162/71
[2017-07-27 10:29] LABS: BASO % 0.4 % (0.0-1.0); EOS # 0.1 10*3/uL (0.0-0.4); EOS % 1.7 % (1.0-4.0); HEMATOCRIT 32.6 % (42.0-52.0); HEMOGLOBIN 10.8 g/dl (14.0-18.0); LYMPH # 1.1 10*3/uL (1.3-4.4); LYMPH % 15.2 % (27.0-41.0); MEAN CELL VOLUME 83.4 fl (80.0-94.0); MEAN CORPUSCULAR HGB 27.6 pg (27.0-31.0); MEAN CORPUSCULAR HGB CONC 33.1 g/dl (33.0-37.0); MEAN PLATELET VOLUME 9.7 fl (9.6-12.3); MONO # 0.5 10*3/uL (0.1-1.0); MONO % 6.6 % (3.0-9.0); NEUT # 5.5 10*3/uL (2.3-7.9); NEUT % 75.5 % (47.0-73.0); PLATELET COUNT AUTOMATED 218 10*3/uL (130-400); RED BLOOD COUNT 3.91 10*6/uL (4.50-5.90); RED CELL DISTRI WIDTH 14.2 % (0-14.5); WHITE BLOOD COUNT 7.3 10*3/uL (4.8-10.8)
[2017-07-27 10:43] LABS: BUN 20 mg/dl (7-24); CHLORIDE 100 mmol/L (98-107); CREATININE 1.27 mg/dL (0.70-1.30); POTASSIUM 3.5 mmol/L (3.5-5.1); SODIUM 134 mmol/L (136-145)
== END 2017-07-27 12:25 | disposition home or self-care (01) ==
LOC: EDSTATUS 09:48 → ED 09:49 → WOUNDCARE 12:47
PROVIDERS: Emergency Medicine
DX: R73.9 Hyperglycemia, unspecified (principal); Z79.82 Long term (current) use of aspirin; Z79.84 Long term (current) use of oral hypoglycemic drugs; Z79.4 Long term (current) use of insulin; Z79.899 Other long term (current) drug therapy

== ENCOUNTER → 2017-07-29 | Outpatient (CLI) | payer OTHER ==
[2017-07-29 13:38] LABS: HEMATOCRIT 32.8 % (42.0-52.0); HEMOGLOBIN 10.6 g/dl (14.0-18.0); MEAN CELL VOLUME 84.3 fl (80.0-94.0); MEAN CORPUSCULAR HGB 27.2 pg (27.0-31.0); MEAN CORPUSCULAR HGB CONC 32.3 g/dl (33.0-37.0); MEAN PLATELET VOLUME 10.5 fl (9.6-12.3); RED BLOOD COUNT 3.89 10*6/uL (4.50-5.90); RED CELL DISTRI WIDTH 14.2 % (0-14.5); WHITE BLOOD COUNT 6.6 10*3/uL (4.8-10.8)
[2017-07-29 14:08] LABS: ALBUMIN 2.5 gm/dl (3.1-4.5); ALKALINE PHOSPHATASE 107 U/L (45-117); BUN 19 mg/dl (7-24); CHLORIDE 104 mmol/L (98-107); CHOLESTEROL 213 mg/dL (<200); CREATININE 1.24 mg/dL (0.70-1.30); HDL CHOLESTEROL 35 mg/dl (40-60); LDL CHOLESTEROL 143 mg/dL (9-159); POTASSIUM 3.5 mmol/L (3.5-5.1); SGOT/AST 15 IU/L (3-35); SGPT/ALT 16 U/L (12-78); SODIUM 139 mmol/L (136-145); TOTAL PROTEIN 6.5 gm/dL (6.4-8.2); TRIGLYCERIDES 177 mg/dl (<150); VLDL CHOLESTEROL 35 mg/dL (6-40)
== END ==
LOC: LAB 12:40
PROVIDERS: Family Medicine
DX: Z12.5 Encounter for screening for malignant neoplasm of prostate (principal); I10 Essential (primary) hypertension; E11.9 Type 2 diabetes mellitus without complications; E78.00 Pure hypercholesterolemia, unspecified; E55.9 Vitamin D deficiency, unspecified

== ENCOUNTER → 2017-08-03 | Outpatient (CLI) | payer OTHER | END | disposition home or self-care (01) | LOC: WOUNDCARE 04:28 | DX: E11.621 Type 2 diabetes mellitus with foot ulcer (principal); L97.511 Non-pressure chronic ulcer of other part of right foot limited to breakdown of skin; E11.622 Type 2 diabetes mellitus with other skin ulcer; L97.811 Non-pressure chronic ulcer of other part of right lower leg limited to breakdown of skin; E64.0 Sequelae of protein-calorie malnutrition; E11.51 Type 2 diabetes mellitus with diabetic peripheral angiopathy without gangrene; E78.5 Hyperlipidemia, unspecified; I10 Essential (primary) hypertension; E11.40 Type 2 diabetes mellitus with diabetic neuropathy, unspecified; M19.90 Unspecified osteoarthritis, unspecified site; E11.42 Type 2 diabetes mellitus with diabetic polyneuropathy; E11.36 Type 2 diabetes mellitus with diabetic cataract; Z85.46 Personal history of malignant neoplasm of prostate ==

== ENCOUNTER → 2017-08-10 | Outpatient (CLI) | payer OTHER | END | disposition home or self-care (01) | LOC: WOUNDCARE 01:05 | DX: E11.621 Type 2 diabetes mellitus with foot ulcer (principal); L97.512 Non-pressure chronic ulcer of other part of right foot with fat layer exposed; E11.622 Type 2 diabetes mellitus with other skin ulcer; L97.811 Non-pressure chronic ulcer of other part of right lower leg limited to breakdown of skin; E11.51 Type 2 diabetes mellitus with diabetic peripheral angiopathy without gangrene; E64.0 Sequelae of protein-calorie malnutrition; E78.5 Hyperlipidemia, unspecified; I10 Essential (primary) hypertension; E11.40 Type 2 diabetes mellitus with diabetic neuropathy, unspecified; E11.36 Type 2 diabetes mellitus with diabetic cataract; M19.90 Unspecified osteoarthritis, unspecified site; Z85.46 Personal history of malignant neoplasm of prostate ==

== ENCOUNTER → 2017-08-17 | Outpatient (CLI) | payer OTHER | END | disposition home or self-care (01) | LOC: WOUNDCARE 02:17 | DX: E11.621 Type 2 diabetes mellitus with foot ulcer (principal); L97.512 Non-pressure chronic ulcer of other part of right foot with fat layer exposed; E11.51 Type 2 diabetes mellitus with diabetic peripheral angiopathy without gangrene; E64.0 Sequelae of protein-calorie malnutrition; E78.5 Hyperlipidemia, unspecified; I10 Essential (primary) hypertension; E11.40 Type 2 diabetes mellitus with diabetic neuropathy, unspecified; M19.90 Unspecified osteoarthritis, unspecified site; E11.36 Type 2 diabetes mellitus with diabetic cataract; Z85.46 Personal history of malignant neoplasm of prostate ==

== ENCOUNTER → 2017-08-26 | Outpatient (CLI) | payer OTHER | END | disposition home or self-care (01) | LOC: WOUNDCARE 02:13 | DX: E11.621 Type 2 diabetes mellitus with foot ulcer (principal); L97.512 Non-pressure chronic ulcer of other part of right foot with fat layer exposed; E11.51 Type 2 diabetes mellitus with diabetic peripheral angiopathy without gangrene; E64.0 Sequelae of protein-calorie malnutrition; I10 Essential (primary) hypertension; E78.5 Hyperlipidemia, unspecified; M19.90 Unspecified osteoarthritis, unspecified site; E11.40 Type 2 diabetes mellitus with diabetic neuropathy, unspecified; E11.36 Type 2 diabetes mellitus with diabetic cataract; Z85.46 Personal history of malignant neoplasm of prostate ==

== ENCOUNTER → 2017-09-07 | Outpatient (CLI) | payer OTHER | END | disposition home or self-care (01) | LOC: WOUNDCARE 01:54 | DX: E11.622 Type 2 diabetes mellitus with other skin ulcer (principal); L97.811 Non-pressure chronic ulcer of other part of right lower leg limited to breakdown of skin; E11.51 Type 2 diabetes mellitus with diabetic peripheral angiopathy without gangrene; E64.0 Sequelae of protein-calorie malnutrition; E78.5 Hyperlipidemia, unspecified; I10 Essential (primary) hypertension; E11.40 Type 2 diabetes mellitus with diabetic neuropathy, unspecified; E11.36 Type 2 diabetes mellitus with diabetic cataract; M19.90 Unspecified osteoarthritis, unspecified site; Z85.46 Personal history of malignant neoplasm of prostate ==

== ENCOUNTER → 2017-09-14 | Outpatient (CLI) | payer OTHER | END | disposition home or self-care (01) | LOC: WOUNDCARE 01:26 | DX: E11.622 Type 2 diabetes mellitus with other skin ulcer (principal); L97.811 Non-pressure chronic ulcer of other part of right lower leg limited to breakdown of skin; E11.51 Type 2 diabetes mellitus with diabetic peripheral angiopathy without gangrene; E64.0 Sequelae of protein-calorie malnutrition; E78.5 Hyperlipidemia, unspecified; I10 Essential (primary) hypertension; E11.40 Type 2 diabetes mellitus with diabetic neuropathy, unspecified; M19.90 Unspecified osteoarthritis, unspecified site; E11.36 Type 2 diabetes mellitus with diabetic cataract; Z85.46 Personal history of malignant neoplasm of prostate ==

== ENCOUNTER → 2017-11-09 | Outpatient (CLI) | payer OTHER | END | disposition home or self-care (01) | LOC: WOUNDCARE 09:06 | DX: E11.621 Type 2 diabetes mellitus with foot ulcer (principal); L97.412 Non-pressure chronic ulcer of right heel and midfoot with fat layer exposed; E78.5 Hyperlipidemia, unspecified; I10 Essential (primary) hypertension; M19.90 Unspecified osteoarthritis, unspecified site; E11.40 Type 2 diabetes mellitus with diabetic neuropathy, unspecified; E11.36 Type 2 diabetes mellitus with diabetic cataract; Z85.46 Personal history of malignant neoplasm of prostate; Z87.891 Personal history of nicotine dependence ==

== ENCOUNTER → 2017-11-17 | Outpatient (CLI) | payer OTHER | END | disposition home or self-care (01) | LOC: WOUNDCARE 00:42 | DX: E11.621 Type 2 diabetes mellitus with foot ulcer (principal); L97.412 Non-pressure chronic ulcer of right heel and midfoot with fat layer exposed; E78.5 Hyperlipidemia, unspecified; I10 Essential (primary) hypertension; M19.90 Unspecified osteoarthritis, unspecified site; E11.40 Type 2 diabetes mellitus with diabetic neuropathy, unspecified; E11.36 Type 2 diabetes mellitus with diabetic cataract; Z85.46 Personal history of malignant neoplasm of prostate; Z87.891 Personal history of nicotine dependence ==

== ENCOUNTER → 2017-11-24 | Outpatient (CLI) | payer OTHER | END | disposition home or self-care (01) | LOC: WOUNDCARE 03:38 | DX: E11.621 Type 2 diabetes mellitus with foot ulcer (principal); L97.412 Non-pressure chronic ulcer of right heel and midfoot with fat layer exposed; E11.40 Type 2 diabetes mellitus with diabetic neuropathy, unspecified; E11.36 Type 2 diabetes mellitus with diabetic cataract; E78.5 Hyperlipidemia, unspecified; I10 Essential (primary) hypertension; M19.90 Unspecified osteoarthritis, unspecified site; Z85.46 Personal history of malignant neoplasm of prostate; Z87.891 Personal history of nicotine dependence ==

== ENCOUNTER → 2017-12-01 | Outpatient (CLI) | payer OTHER | END | disposition home or self-care (01) | LOC: WOUNDCARE 00:30 | DX: E11.621 Type 2 diabetes mellitus with foot ulcer (principal); L97.412 Non-pressure chronic ulcer of right heel and midfoot with fat layer exposed; E78.5 Hyperlipidemia, unspecified; I10 Essential (primary) hypertension; M19.90 Unspecified osteoarthritis, unspecified site; E11.40 Type 2 diabetes mellitus with diabetic neuropathy, unspecified; E11.36 Type 2 diabetes mellitus with diabetic cataract; Z85.46 Personal history of malignant neoplasm of prostate; Z87.891 Personal history of nicotine dependence ==

== ENCOUNTER → 2017-12-08 | Outpatient (CLI) | payer OTHER | END | disposition home or self-care (01) | LOC: WOUNDCARE 02:43 | DX: E11.621 Type 2 diabetes mellitus with foot ulcer (principal); L97.412 Non-pressure chronic ulcer of right heel and midfoot with fat layer exposed; E11.36 Type 2 diabetes mellitus with diabetic cataract; E11.40 Type 2 diabetes mellitus with diabetic neuropathy, unspecified; E78.5 Hyperlipidemia, unspecified; I10 Essential (primary) hypertension; M19.90 Unspecified osteoarthritis, unspecified site; Z85.46 Personal history of malignant neoplasm of prostate; Z87.891 Personal history of nicotine dependence ==

== ENCOUNTER → 2017-12-29 | Outpatient (CLI) | payer OTHER | END | disposition home or self-care (01) | LOC: WOUNDCARE 09:13 | DX: E11.621 Type 2 diabetes mellitus with foot ulcer (principal); L97.512 Non-pressure chronic ulcer of other part of right foot with fat layer exposed; E11.51 Type 2 diabetes mellitus with diabetic peripheral angiopathy without gangrene; E78.5 Hyperlipidemia, unspecified; I10 Essential (primary) hypertension; M19.90 Unspecified osteoarthritis, unspecified site; E11.40 Type 2 diabetes mellitus with diabetic neuropathy, unspecified; E11.36 Type 2 diabetes mellitus with diabetic cataract; Z85.46 Personal history of malignant neoplasm of prostate; Z87.891 Personal history of nicotine dependence ==

== ENCOUNTER → 2018-01-05 | Outpatient (CLI) | payer OTHER | END | disposition home or self-care (01) | LOC: WOUNDCARE 01:41 | DX: E11.621 Type 2 diabetes mellitus with foot ulcer (principal); L97.512 Non-pressure chronic ulcer of other part of right foot with fat layer exposed; I73.9 Peripheral vascular disease, unspecified; E78.5 Hyperlipidemia, unspecified; E11.40 Type 2 diabetes mellitus with diabetic neuropathy, unspecified; E11.36 Type 2 diabetes mellitus with diabetic cataract; I10 Essential (primary) hypertension; M19.90 Unspecified osteoarthritis, unspecified site; Z85.46 Personal history of malignant neoplasm of prostate; Z98.42 Cataract extraction status, left eye; Z87.891 Personal history of nicotine dependence ==

== ENCOUNTER → 2018-02-23 | Outpatient (CLI) | payer OTHER ==
[~2018-02-23] MED LIST changes: +AMLODIPINE BESYL5 MG PO; +ATORVASTATIN CA40 M1 PO; +CEFUROXIME AXE250 MG PO
[2018-02-23 11:59] LABS: BASO # 0.1 10*3/uL (0.0-0.1); BASO % 0.7 % (0.0-1.0); EOS # 0.2 10*3/uL (0.0-0.4); EOS % 1.8 % (1.0-4.0); HEMATOCRIT 29.4 % (42.0-52.0); LYMPH # 1.7 10*3/uL (1.3-4.4); LYMPH % 20.5 % (27.0-41.0); MEAN CELL VOLUME 84.7 fl (80.0-94.0); MEAN CORPUSCULAR HGB 25.9 pg (27.0-31.0); MEAN CORPUSCULAR HGB CONC 30.6 g/dl (33.0-37.0); MEAN PLATELET VOLUME 8.7 fl (9.6-12.3); MONO # 0.5 10*3/uL (0.1-1.0); MONO % 6.5 % (3.0-9.0); NEUT # 5.8 10*3/uL (2.3-7.9); NEUT % 70.3 % (47.0-73.0); PLATELET COUNT AUTOMATED 292 10*3/uL (130-400); RED BLOOD COUNT 3.47 10*6/uL (4.50-5.90); RED CELL DISTRI WIDTH 15.5 % (0-14.5); WHITE BLOOD COUNT 8.2 10*3/uL (4.8-10.8)
[2018-02-23 12:14] LABS: ALBUMIN 2.7 gm/dl (3.1-4.5); ALKALINE PHOSPHATASE 90 U/L (45-117); BUN 15 mg/dl (7-24); CHLORIDE 107 mmol/L (98-107); CREATININE 1.25 mg/dL (0.70-1.30); POTASSIUM 4.1 mmol/L (3.5-5.1); SGOT/AST 11 IU/L (3-35); SGPT/ALT 11 U/L (12-78); SODIUM 141 mmol/L (136-145); TOTAL PROTEIN 7.2 gm/dL (6.4-8.2)
== END | disposition home or self-care (01) ==
LOC: LAB 11:42
PROVIDERS: Family Medicine
DX: N18.3 Chronic kidney disease, stage 3 (moderate) (principal); D64.9 Anemia, unspecified

== ENCOUNTER 2018-04-06 08:56 | Inpatient (IN) | payer OTHER ==
[~2018-04-06] VITALS: Ht 177.8 cm; Wt 84.5 kg
--- NOTE | ~2018-04-06 | PR ---
[place], [place] PROGRESS NOTE NAME: NIKI DAY [facility] #: [id number] UNIT #: [id number] ROOM: 510 DOCTOR: CATINA APODACA MD BIRTHDATE: [birth year] DOS: 04/08/2018 SUBJECTIVE: The patient with adult failure to thrive and generalized weakness. PHYSICAL EXAMINATION: VITAL SIGNS: Blood pressure 188/82, heart rate 79 beats per minute, breathing 20 times per minute, temperature 98 degrees Fahrenheit. GENERAL APPEARANCE: The patient is alert and oriented x 3, in no visible distress, except for generalized weakness. HEENT AND NECK: Exam within normal limits. CARDIOVASCULAR SYSTEM: Heart rate is regular in rate and rhythm. S1 and S2 normally audible. LUNGS: Clear to auscultation. ABDOMEN: Soft, nontender. No obvious organomegaly. Bowel sounds are present. EXTREMITIES: Without significant cyanosis or edema. IMPRESSION: 1. The patient is hard of hearing. 2. Hypoglycemia, now blood sugars have improved and ranging between 145 to 284, increased. 3. Hypokalemia, replaced with supplements. 4. Urinary tract infection, being treated with Rocephin. Urine culture is growing Citrobacter freundii. 5. Hypokalemia, to be replaced with extra potassium supplements. 6. Peripheral arterial disease, treated with aspirin and Plavix. 7. Adult failure to thrive, advanced disability. The patient is waiting for transfer to [facility] for [facility]. CATINA APODACA MD CM:PNTRANS [phone] CATINA APODACA MD 04/09/18 1229 interface
--- NOTE | ~2018-04-06 | PR ---
[place], [place] PROGRESS NOTE NAME: NIKI DAY [facility] #: [id number] UNIT #: [id number] ROOM: 510 DOCTOR: EVONNE TORRES MD BIRTHDATE: [birth year] DOS: 04/11/2018 SUBJECTIVE: The patient is looking good, does not have any complaints. He wonders why he did not go to [facility] yesterday. OBJECTIVE: VITAL SIGNS: Blood pressure is 151/78, pulse of 70, respirations 18, temperature 97.6. LUNGS: Diminished breath sounds, clear. HEART: Regular. ABDOMEN: Obese, soft, nontender. EXTREMITIES: Without any edema. ASSESSMENT AND PLAN: 1. 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 The patient's mental status seems to have improved. 2. Type 2 diabetes mellitus with hypoglycemia and vasovagal syncope. He is off his insulin. 3. Urinary tract infection with Citrobacter freundii, on antibiotics. The patient is stable and hopefully he can just be discharged to home today to [facility] for continued PT, OT. EVONNE TORRES MD CM:PNTRANS [phone] EVONNE TORRES MD 04/11/18 1300 interface
--- NOTE | ~2018-04-06 | WRIGHTHP ---
[place], [place] PATIENT HISTORY AND PHYSICAL EXAM NAME: NIKI DAY [facility] #: [id number] UNIT #: [id number] ROOM: 510 DOCTOR: EVONNE TORRES MD BIRTHDATE: [birth year] DOS: 04/06/2018 HISTORY OF PRESENT ILLNESS: The patient is 82 years old, patient of Dr. Jhaveri, was found in a ditch yesterday by a passerby. He was brought to the Emergency Room by EMS. The patient was found to be hypoglycemic in the Emergency Room and not responding very well, but this morning, the patient is awake and alert and oriented and he is answering questions appropriately. He denies having any complaints of chest pains or palpitations, does not have any fever or chills. The patient states that he was walking from his home, which is on [address] to [facility] to have breakfast. He did not eat anything, but he took his insulin. On the way, he collapsed and fell into a ditch that is where the passerby found him. He was brought to the Emergency Room again, sugar was in the low 50s and he was placed on IV fluids and his sugar did normalize. This morning, the patient states that he has no chest pains or palpitations. He had a similar episode about a few weeks ago and he was in [facility] for that and he still takes insulin as after his last admission to [facility], he was transferred to [facility] where he was there for a few days and he was just released. PAST MEDICAL HISTORY: Significant for: 1. Type 2 diabetes mellitus, insulin-dependent. 2. History of poorly healing toe ulcer from peripheral vascular disease. 3. Adult failure to thrive. 4. History of carcinoma of prostate. 5. Poor insight to medical problems. MEDICATIONS: He is currently on are Plavix 75 daily, glipizide 10 daily, lisinopril 10 daily, simvastatin 80 daily, metformin 1000 b.i.d., Januvia 50 daily, Levemir 40 units at bedtime. SOCIAL HISTORY: Nonsmoker, does not use any alcohol. He has 2 children, one lives in [place], [place]; the other one in [place]. The patient states that his son in [place] does come and see him, but otherwise he lives alone. PHYSICAL EXAMINATION: GENERAL: He is awake and alert and oriented. VITAL SIGNS: Graphic trend shows a pressure of 142/70, pulse of 80, respirations 14, afebrile. LUNGS: Diminished breath sounds, clear. HEART: Regular. ABDOMEN: Obese, soft. EXTREMITIES: Without any edema. Multiple scratch guillermo all over his body, but they do not look infected. There is some evidence of peripheral vascular disease with discoloration of both his legs. ASSESSMENT AND PLAN: 1. The patient was found to be severely hypoglycemic. I do not believe he needs to take this high dose of insulin and multiple antidiabetics. His last few blood sugars were 89, 157, 211 and 215. I will restart a low dose of Januvia, but I will hold off on all his other medications. [place], [place] PATIENT HISTORY AND PHYSICAL EXAM [facility]: [id number]IT #: [id number] ROOM: [facility] DOCTOR: EVONNE TORRES MD BIRTHDATE: [birth year] 2. Hypokalemia. Supplementation was given in the IV. P.o. supplementation also to be given today. 3. Peripheral vascular disease. Plavix and aspirin are being continued. 4. Possible urinary tract infection, leukocyte esterase, nitrite are positive. Rocephin was started. His white cell count is normal. Discussed with the patient in detail, is agreeable to go to [facility]. Social Service will be consulted. EVONNE TORRES MD CM:HISPHYS:PATIENT HISTORY AND PHYSICAL EXAMINATION [id number] EVONNE TORRES MD 04/07/18 0744 interface
--- NOTE | ~2018-04-06 | PR ---
[place], [place] PROGRESS NOTE [id number] UN[facility] #: [id number] ROOM: 510 DOCTOR: CATINA APODACA MD BIRTHDATE: [birth year] DOS: 04/09/2018 SUBJECTIVE: The patient is awake, alert, pleasantly confused. OBJECTIVE: GENERAL APPEARANCE: The patient is alert and oriented x 3, in no visible distress. Mental confusion and generalized weakness. VITAL SIGNS: Blood pressure 154/58, heart rate of 65, temperature 98 degrees Fahrenheit. HEENT AND NECK: Exam within normal limits. CARDIOVASCULAR SYSTEM: Heart rate is regular in rate and rhythm. S1 and S2 normally audible. LUNGS: Clear to auscultation. ABDOMEN: Soft, nontender. No obvious organomegaly. Bowel sounds are present. EXTREMITIES: Without significant cyanosis or edema. IMPRESSION: 1. Benign essential hypertension with elevated blood pressures. Norvasc was added and later on clonidine, blood pressures have improved. 2. Type 2 diabetes mellitus. Blood sugars are better controlled, ranging between 150-200 mostly. 3. Peripheral vascular disease, treated with aspirin and Plavix. 4. Hypokalemia, replaced with extra potassium supplements. Potassium level is normal now. 5. Adult failure to thrive and advanced disability. Late onset Alzheimer's type dementia and mental confusion. The patient [facility]. 6. Urinary tract infection being treated with Rocephin. CATINA APODACA MD CM:PNTRANS [phone] CATINA APODACA MD 05/04/18 0838 interface
--- NOTE | ~2018-04-06 | DS ---
[place], [place] DISCHARGE SUMMARY NAME: NIKI DAY [facility] #: [id number] UNIT #: [id number] ROOM: 510 DOCTOR: EVONNE TORRES MD BIRTHDATE: [birth year] DOS: 04/10/2018 DIAGNOSES: 1. Adult failure to thrive. 2. Type 2 diabetes mellitus, with severe hypoglycemia. 3. Noncompliance with poor insight to medical problems. 4. History of peripheral vascular disease. 5. History of cancer, prostate. 6. Mixed hyperlipidemia. 7. Benign hypertension. 8. Chronic small vessel disease with history of lacunar infarct in the left gerry. HOSPITAL COURSE: This patient is not known to me. He is 82-year-old. He was found in a ditch by a passerby bypass, ambulance was called and was brought to the Emergency Room. He was found to be hypoglycemic in the 50s. On close questioning, the patient states that he was walking to [facility] from his home, which is few miles away and a hot weather. He became dizzy and lightheaded and fell. He is unsure about what happened after that. This is the second time he has had a similar fall about a few weeks ago and was admitted to [facility] and was transferred to [facility]. He was admitted there for physical therapy. After a few days there he was released to home. He lives at home alone and does not have any caretakers. The patient at the time of admission was answering questions appropriately. The patient did seem to be very slow in responding to questions. PT/OT consultation was ordered. The patient's blood sugars checked often and his insulin as well as oral anti-diabetics were discontinued. He was hypokalemic, supplementation was given. He was found to have UTI. Urine culture was ordered and IV antibiotics started. The patient has slowly improved and if you feel that the patient will need to be placed because he is no longer stable enough to go home and he could be a danger to himself, so he should really have a guardianship if family is not involved and possibly needs long-term care placement. For today, he is going to be discharged to [facility]. His diet is ADA 1800. Blood sugar is to be checked twice a day. If they start going up above 200, please give me a call, so meds can be adjusted. [place], [place] DISCHARGE SUMMARY NAME: NIKI DAY UNIT #: [id number] ROOM: 510 DOCTOR: EVONNE TORRES MD BIRTHDATE: [birth year] EVONNE TORRES MD CM:CHARAN [id number] EVONNE TORRES MD 04/10/18 0839 interface
--- NOTE | ~2018-04-06 | PR ---
[place], [place] PROGRESS NOTE [id number] #: [id number] ROOM: 510 DOCTOR: EVONNE TORRES MD BIRTHDATE: [birth year] DOS: 04/10/2018 SUBJECTIVE: The patient is sitting up in a chair, ready to eat his breakfast. He does not have any complaints, anxious to get out of the hospital. OBJECTIVE: VITAL SIGNS: Blood pressure is 140/64, pulse of 70, respirations 18, temperature 98.2. LUNGS: Diminished breath sounds. No wheezes, rales, rhonchi heard. HEART: Regular. ABDOMEN: Obese, soft, nontender. EXTREMITIES: Without any edema. LABORATORY DATA: UTI with Citrobacter freundii. Urine culture is positive for more than 100,000 colonies. ASSESSMENT AND PLAN: 1. The patient with syncopal episode from hypoglycemia resulting in him falling in a ditch and lying there for hours, was found by passersby and brought to the Emergency Room. He is being placed to [facility] today. 2. Adult failure to thrive. Continue PT and OT at the snf. 3. Type 2 diabetes mellitus, insulin-dependent with hypoglycemia. I do not believe the patient needs to be on insulin any longer. We can continue Januvia 100 for right now and we can add another one of his oral antidiabetics at a later date if the sugar starts going up. For right now, no insulin is to be considered. EVONNE TORRES MD CM:PNTRANS 0741 20 EVONNE TORRES MD 04/10/181919 interface
[~2018-04-06 08:56] MED LIST changes: -AMLODIPINE BESYL5 MG PO; -ATORVASTATIN CA40 M1 PO; -CEFUROXIME AXE250 MG PO
[2018-04-06 08:58] VITALS: BP 152/61
[2018-04-06 09:27] LABS: BASO % 0.6 % (0.0-1.0); EOS # 0.2 10*3/uL (0.0-0.4); EOS % 2.6 % (1.0-4.0); HEMATOCRIT 30.6 % (42.0-52.0); HEMOGLOBIN 9.3 g/dl (14.0-18.0); LYMPH # 1.2 10*3/uL (1.3-4.4); MEAN CELL VOLUME 86.9 fl (80.0-94.0); MEAN CORPUSCULAR HGB 26.4 pg (27.0-31.0); MEAN CORPUSCULAR HGB CONC 30.4 g/dl (33.0-37.0); MEAN PLATELET VOLUME 9.5 fl (9.6-12.3); MONO # 0.6 10*3/uL (0.1-1.0); MONO % 9.9 % (3.0-9.0); NEUT # 4.4 10*3/uL (2.3-7.9); NEUT % 67.4 % (47.0-73.0); PLATELET COUNT AUTOMATED 224 10*3/uL (130-400); RED BLOOD COUNT 3.52 10*6/uL (4.50-5.90); RED CELL DISTRI WIDTH 15.9 % (0-14.5); WHITE BLOOD COUNT 6.5 10*3/uL (4.8-10.8)
[2018-04-06 09:36] LABS: ACT PARTIAL THROMBO TIME 26.2 SECONDS (20.8-31.5)
[2018-04-06 09:43] LABS: ALBUMIN 2.9 gm/dl (3.1-4.5); ALKALINE PHOSPHATASE 93 U/L (45-117); BUN 16 mg/dl (7-24); CHLORIDE 104 mmol/L (98-107); CREATININE 1.33 mg/dL (0.70-1.30); POTASSIUM 3.2 mmol/L (3.5-5.1); SGOT/AST 9 IU/L (3-35); SGPT/ALT 10 U/L (12-78); SODIUM 141 mmol/L (136-145)
[2018-04-06 09:56] LABS: BILIRUBIN NEGATIVE (NEGATIVE); BLOOD 2+ (NEGATIVE); CLARITY SL CLOUDY (CLEAR); COLOR STRAW (YELLOW); GLUCOSE NEGATIVE (NEGATIVE); KETONE NEGATIVE (NEGATIVE); LEUKO ESTERASE 2+ (NEGATIVE); NITRITE POSITIVE (NEGATIVE); UROBILINOGEN 0.2 E.U./dl (0.2-1.0)
[2018-04-06 10:31] LABS: BACTERIA 4+; RBC 31-40 rbc/hpf (0-2); WBC 51-100 wbc/hpf (0-5)
[2018-04-06 12:18] VITALS: BP 166/80
[2018-04-06 14:26] VITALS: BP 160/88
[2018-04-06 16:11] VITALS: BP 140/78
[2018-04-06 20:00] VITALS: BP 178/99
[2018-04-07] VITALS: BP 159/69
[2018-04-07 06:10] LABS: BASO % 0.5 % (0.0-1.0); EOS # 0.2 10*3/uL (0.0-0.4); EOS % 2.2 % (1.0-4.0); HEMATOCRIT 28.5 % (42.0-52.0); LYMPH # 1.6 10*3/uL (1.3-4.4); LYMPH % 20.8 % (27.0-41.0); MEAN CELL VOLUME 84.8 fl (80.0-94.0); MEAN CORPUSCULAR HGB 26.8 pg (27.0-31.0); MEAN CORPUSCULAR HGB CONC 31.6 g/dl (33.0-37.0); MEAN PLATELET VOLUME 9.8 fl (9.6-12.3); MONO # 0.7 10*3/uL (0.1-1.0); MONO % 8.6 % (3.0-9.0); NEUT # 5.2 10*3/uL (2.3-7.9); NEUT % 67.6 % (47.0-73.0); PLATELET COUNT AUTOMATED 223 10*3/uL (130-400); RED BLOOD COUNT 3.36 10*6/uL (4.50-5.90); RED CELL DISTRI WIDTH 15.9 % (0-14.5); WHITE BLOOD COUNT 7.7 10*3/uL (4.8-10.8)
[2018-04-07 06:29] LABS: BUN 15 mg/dl (7-24); CHLORIDE 106 mmol/L (98-107); CREATININE 1.12 mg/dL (0.70-1.30); POTASSIUM 3.4 mmol/L (3.5-5.1); SODIUM 142 mmol/L (136-145)
[2018-04-07 08:00] VITALS: BP 150/78
[2018-04-07 12:00] VITALS: BP 150/70
[2018-04-07 16:00] VITALS: BP 170/60
[2018-04-07 20:00] VITALS: BP 191/76
[2018-04-08] VITALS: BP 175/75
[2018-04-08 08:00] VITALS: BP 140/90
[2018-04-08 12:48] VITALS: BP 188/82
[2018-04-08 16:00] VITALS: BP 183/69
[2018-04-08 20:00] VITALS: BP 158/71; BP 186/78
[2018-04-09] VITALS (9 sets, daily range): BP systolic 151–186; BP diastolic 56–90
[2018-04-09 05:59] LABS: BASO % 0.5 % (0.0-1.0); EOS # 0.3 10*3/uL (0.0-0.4); EOS % 3.6 % (1.0-4.0); HEMATOCRIT 30.4 % (42.0-52.0); HEMOGLOBIN 9.6 g/dl (14.0-18.0); LYMPH # 1.8 10*3/uL (1.3-4.4); LYMPH % 22.8 % (27.0-41.0); MEAN CELL VOLUME 85.4 fl (80.0-94.0); MEAN CORPUSCULAR HGB CONC 31.6 g/dl (33.0-37.0); MONO # 0.8 10*3/uL (0.1-1.0); MONO % 9.8 % (3.0-9.0); NEUT # 4.8 10*3/uL (2.3-7.9); NEUT % 62.8 % (47.0-73.0); PLATELET COUNT AUTOMATED 230 10*3/uL (130-400); RED BLOOD COUNT 3.56 10*6/uL (4.50-5.90); RED CELL DISTRI WIDTH 15.8 % (0-14.5); WHITE BLOOD COUNT 7.7 10*3/uL (4.8-10.8)
[2018-04-09 06:33] LABS: BUN 16 mg/dl (7-24); CHLORIDE 104 mmol/L (98-107); CREATININE 1.09 mg/dL (0.70-1.30); SODIUM 138 mmol/L (136-145)
[2018-04-10] VITALS: BP 140/64
[2018-04-10 06:23] LABS: BASO % 0.5 % (0.0-1.0); EOS # 0.2 10*3/uL (0.0-0.4); EOS % 2.9 % (1.0-4.0); HEMATOCRIT 30.3 % (42.0-52.0); HEMOGLOBIN 9.6 g/dl (14.0-18.0); LYMPH # 1.4 10*3/uL (1.3-4.4); LYMPH % 17.5 % (27.0-41.0); MEAN CORPUSCULAR HGB 26.3 pg (27.0-31.0); MEAN CORPUSCULAR HGB CONC 31.7 g/dl (33.0-37.0); MEAN PLATELET VOLUME 9.6 fl (9.6-12.3); MONO # 0.6 10*3/uL (0.1-1.0); MONO % 7.7 % (3.0-9.0); NEUT # 5.8 10*3/uL (2.3-7.9); NEUT % 70.9 % (47.0-73.0); PLATELET COUNT AUTOMATED 261 10*3/uL (130-400); RED BLOOD COUNT 3.65 10*6/uL (4.50-5.90); RED CELL DISTRI WIDTH 15.5 % (0-14.5); WHITE BLOOD COUNT 8.2 10*3/uL (4.8-10.8)
[2018-04-10 06:55] LABS: BUN 18 mg/dl (7-24); CHLORIDE 104 mmol/L (98-107); CREATININE 1.18 mg/dL (0.70-1.30); SODIUM 139 mmol/L (136-145)
[2018-04-10] MEDS ORDERED: JANUVIA50 MG PO (07:37)
[2018-04-10] MEDS ORDERED: AMLODIPINE BESYL5 MG PO (07:37)
[2018-04-10] MEDS ORDERED: CEFUROXIME AXE250 MG PO (07:37)
[2018-04-10] MEDS ORDERED: ATORVASTATIN CA40 M1 PO (07:37)
[2018-04-10 08:00] VITALS: BP 153/75
[2018-04-10 12:00] VITALS: BP 148/72
[2018-04-10 16:00] VITALS: BP 155/71
[2018-04-10 20:00] VITALS: BP 164/78
[2018-04-11] VITALS: BP 151/78
[2018-04-11 06:39] LABS: BASO # 0.1 10*3/uL (0.0-0.1); BASO % 0.6 % (0.0-1.0); EOS # 0.2 10*3/uL (0.0-0.4); HEMATOCRIT 30.8 % (42.0-52.0); HEMOGLOBIN 9.7 g/dl (14.0-18.0); LYMPH # 1.6 10*3/uL (1.3-4.4); LYMPH % 20.2 % (27.0-41.0); MEAN CELL VOLUME 84.2 fl (80.0-94.0); MEAN CORPUSCULAR HGB 26.5 pg (27.0-31.0); MEAN CORPUSCULAR HGB CONC 31.5 g/dl (33.0-37.0); MEAN PLATELET VOLUME 9.7 fl (9.6-12.3); MONO # 0.6 10*3/uL (0.1-1.0); MONO % 7.9 % (3.0-9.0); NEUT # 5.4 10*3/uL (2.3-7.9); PLATELET COUNT AUTOMATED 268 10*3/uL (130-400); RED BLOOD COUNT 3.66 10*6/uL (4.50-5.90); RED CELL DISTRI WIDTH 15.4 % (0-14.5)
[2018-04-11 06:49] LABS: BUN 19 mg/dl (7-24); CHLORIDE 105 mmol/L (98-107); CREATININE 1.16 mg/dL (0.70-1.30); SODIUM 140 mmol/L (136-145)
[2018-04-11 08:00] VITALS: BP 180/74
== END 2018-04-11 12:40 | DRG 637 ==
LOC: ED 08:56 → 5E 11:50 → EDHOLD 11:50 → 5E 12:21
PROVIDERS: Internal Medicine; Registered Nurse
PROC: 5A09357 Assistance with Respiratory Ventilation, Less than 24 Consecutive Hours, Continuous Positive Airway Pressure (ICD-10-PCS; principal; 2018-04-08)
DX: E11.649 Type 2 diabetes mellitus with hypoglycemia without coma (principal); G93.41 Metabolic encephalopathy; E11.51 Type 2 diabetes mellitus with diabetic peripheral angiopathy without gangrene; E11.65 Type 2 diabetes mellitus with hyperglycemia; N39.0 Urinary tract infection, site not specified; E87.6 Hypokalemia; R62.7 Adult failure to thrive; E78.2 Mixed hyperlipidemia; I10 Essential (primary) hypertension; Z60.2 Problems related to living alone; R33.9 Retention of urine, unspecified; E66.9 Obesity, unspecified; W18.39XA Other fall on same level, initial encounter; G30.1 Alzheimer's disease with late onset; F02.80 Dementia in other diseases classified elsewhere, unspecified severity, without behavioral disturbance, psychotic disturbance, mood disturbance, and anxiety; H91.90 Unspecified hearing loss, unspecified ear; Z91.14 Patient's other noncompliance with medication regimen; Z85.46 Personal history of malignant neoplasm of prostate; Z79.899 Other long term (current) drug therapy; Z79.4 Long term (current) use of insulin; Z79.82 Long term (current) use of aspirin; Y93.89 Activity, other specified; Y92.89 Other specified places as the place of occurrence of the external cause; Y99.8 Other external cause status; Z68.26 Body mass index [BMI] 26.0-26.9, adult; Z86.73 Personal history of transient ischemic attack (TIA), and cerebral infarction without residual deficits

== ENCOUNTER → 2018-04-20 | Outpatient (CLI) | payer OTHER ==
[~2018-04-20] MED LIST changes: +AMLODIPINE BESYL5 MG PO; +ATORVASTATIN CA40 M1 PO; +CEFUROXIME AXE250 MG PO
[2018-04-20 13:28] LABS: HEMATOCRIT 31.3 % (42.0-52.0); HEMOGLOBIN 9.7 g/dl (14.0-18.0); MEAN CELL VOLUME 85.5 fl (80.0-94.0); MEAN CORPUSCULAR HGB 26.5 pg (27.0-31.0); MEAN PLATELET VOLUME 8.9 fl (9.6-12.3); RED BLOOD COUNT 3.66 10*6/uL (4.50-5.90); RED CELL DISTRI WIDTH 15.3 % (0-14.5); WHITE BLOOD COUNT 10.8 10*3/uL (4.8-10.8)
[2018-04-20 13:43] LABS: CREATININE 1.47 mg/dL (0.70-1.30); POTASSIUM 3.9 mmol/L (3.5-5.1); TOTAL PROTEIN 7.1 gm/dL (6.4-8.2)
== END | disposition home or self-care (01) ==
LOC: LAB 13:11
PROVIDERS: Family Medicine
DX: D64.9 Anemia, unspecified (principal); E11.9 Type 2 diabetes mellitus without complications; R55 Syncope and collapse

== ENCOUNTER → 2018-08-23 | Outpatient (CLI) | payer OTHER ==
[~2018-08-23] MED LIST changes: +LEVAQUIN500 M2 PO; +TYLENOL EXTRA500 M2 PO
[2018-08-23 15:17] LABS: HEMATOCRIT 31.1 % (42.0-52.0); HEMOGLOBIN 9.6 g/dl (14.0-18.0); MEAN CELL VOLUME 86.1 fl (80.0-94.0); MEAN CORPUSCULAR HGB 26.6 pg (27.0-31.0); MEAN CORPUSCULAR HGB CONC 30.9 g/dl (33.0-37.0); MEAN PLATELET VOLUME 9.9 fl (9.6-12.3); RED BLOOD COUNT 3.61 10*6/uL (4.50-5.90); RED CELL DISTRI WIDTH 14.7 % (0-14.5); WHITE BLOOD COUNT 7.9 10*3/uL (4.8-10.8)
[2018-08-23 15:44] LABS: CREATININE 1.42 mg/dL (0.70-1.30); TOTAL PROTEIN 7.1 gm/dL (6.4-8.2)
== END | disposition home or self-care (01) ==
LOC: LAB 14:51
PROVIDERS: Family Medicine
DX: E78.00 Pure hypercholesterolemia, unspecified (principal); I10 Essential (primary) hypertension; E11.9 Type 2 diabetes mellitus without complications

== ENCOUNTER → 2018-09-06 | Outpatient (CLI) | payer OTHER | END | disposition home or self-care (01) | LOC: RAD 14:11 | DX: R07.81 Pleurodynia (principal) ==

== ENCOUNTER → 2018-10-13 | Outpatient (CLI) | payer MEDICARE ==
[~2018-10-13] MED LIST changes: +AMLODIPINE BESY10 MG PO; +CARVEDILOL3.125 MG PO; +CLOPIDOGREL75 MG PO; +FEROSUL325 MG PO; +FUROSEMIDE40 MG PO; +GLIPIZIDE10 M2 PO; +LISINOPRIL40 MG PO
[2018-10-13 16:13] LABS: ALBUMIN 2.9 gm/dl (3.1-4.5); CREATININE 1.57 mg/dL (0.70-1.30); PHOSPHOROUS 3.2 mg/dL (2.5-4.9); POTASSIUM 4.2 mmol/L (3.5-5.1)
== END | disposition home or self-care (01) ==
LOC: LAB 15:21
PROVIDERS: Family Medicine
DX: N18.3 Chronic kidney disease, stage 3 (moderate) (principal)

== ENCOUNTER → 2018-11-14 | Outpatient (CLI) | payer MEDICARE ==
[2018-11-14 16:25] LABS: HEMATOCRIT 34.2 % (42.0-52.0); HEMOGLOBIN 10.6 g/dl (14.0-18.0); MEAN CELL VOLUME 87.9 fl (80.0-94.0); MEAN CORPUSCULAR HGB 27.2 pg (27.0-31.0); MEAN PLATELET VOLUME 9.8 fl (9.6-12.3); RED BLOOD COUNT 3.89 10*6/uL (4.50-5.90); RED CELL DISTRI WIDTH 14.5 % (0-14.5)
[2018-11-14 17:20] LABS: ALBUMIN 3.4 gm/dl (3.1-4.5)
[2018-11-14 17:22] LABS: CREATININE 2.06 mg/dL (0.70-1.30); TOTAL PROTEIN 7.8 gm/dL (6.4-8.2)
== END | disposition home or self-care (01) ==
LOC: LAB 16:01
PROVIDERS: Family Medicine
DX: E78.00 Pure hypercholesterolemia, unspecified (principal); E11.9 Type 2 diabetes mellitus without complications; I10 Essential (primary) hypertension; E55.9 Vitamin D deficiency, unspecified

== ENCOUNTER → 2018-12-06 | Day surgery (SDC) | payer MEDICARE | END | disposition home or self-care (01) | LOC: SDC 11-30 09:30 | DX: H25.9 Unspecified age-related cataract (principal); Z53.8 Procedure and treatment not carried out for other reasons ==

== ENCOUNTER → 2019-01-03 | Outpatient (CLI) | payer MEDICARE | END | disposition home or self-care (01) | LOC: WOUNDCARE 10:26 | DX: E11.622 Type 2 diabetes mellitus with other skin ulcer (principal); L89.890 Pressure ulcer of other site, unstageable; L98.492 Non-pressure chronic ulcer of skin of other sites with fat layer exposed; E78.5 Hyperlipidemia, unspecified; I10 Essential (primary) hypertension; M19.90 Unspecified osteoarthritis, unspecified site; E11.40 Type 2 diabetes mellitus with diabetic neuropathy, unspecified; E11.36 Type 2 diabetes mellitus with diabetic cataract; Z85.46 Personal history of malignant neoplasm of prostate; Z87.891 Personal history of nicotine dependence ==

== ENCOUNTER → 2019-01-08 | Outpatient (CLI) | payer MEDICARE | END | disposition home or self-care (01) | LOC: WOUNDCARE 08:17 | DX: E11.622 Type 2 diabetes mellitus with other skin ulcer (principal); L89.890 Pressure ulcer of other site, unstageable; L98.492 Non-pressure chronic ulcer of skin of other sites with fat layer exposed; E11.40 Type 2 diabetes mellitus with diabetic neuropathy, unspecified; E11.36 Type 2 diabetes mellitus with diabetic cataract; I10 Essential (primary) hypertension; E78.5 Hyperlipidemia, unspecified; M19.90 Unspecified osteoarthritis, unspecified site; Z85.46 Personal history of malignant neoplasm of prostate; Z87.891 Personal history of nicotine dependence ==

== ENCOUNTER → 2019-01-23 | Outpatient (CLI) | payer MEDICARE | END | disposition home or self-care (01) | LOC: WOUNDCARE 02:01 | DX: E11.622 Type 2 diabetes mellitus with other skin ulcer (principal); L89.893 Pressure ulcer of other site, stage 3; L98.491 Non-pressure chronic ulcer of skin of other sites limited to breakdown of skin; E78.5 Hyperlipidemia, unspecified; I10 Essential (primary) hypertension; E11.40 Type 2 diabetes mellitus with diabetic neuropathy, unspecified; E11.36 Type 2 diabetes mellitus with diabetic cataract; I83.90 Asymptomatic varicose veins of unspecified lower extremity; M19.90 Unspecified osteoarthritis, unspecified site; Z85.46 Personal history of malignant neoplasm of prostate; Z79.4 Long term (current) use of insulin; Z87.891 Personal history of nicotine dependence ==

== ENCOUNTER → 2019-01-30 | Outpatient (CLI) | payer MEDICARE | END | disposition home or self-care (01) | LOC: WOUNDCARE 00:53 | DX: E11.622 Type 2 diabetes mellitus with other skin ulcer (principal); L89.893 Pressure ulcer of other site, stage 3; L98.491 Non-pressure chronic ulcer of skin of other sites limited to breakdown of skin; E78.5 Hyperlipidemia, unspecified; I10 Essential (primary) hypertension; E11.40 Type 2 diabetes mellitus with diabetic neuropathy, unspecified; E11.36 Type 2 diabetes mellitus with diabetic cataract; M19.90 Unspecified osteoarthritis, unspecified site; Z85.46 Personal history of malignant neoplasm of prostate; Z87.891 Personal history of nicotine dependence ==

== ENCOUNTER → 2019-03-08 | Outpatient (CLI) | payer MEDICARE | END | disposition home or self-care (01) | LOC: WOUNDCARE 07:59 | DX: E11.622 Type 2 diabetes mellitus with other skin ulcer (principal); L89.893 Pressure ulcer of other site, stage 3; L98.491 Non-pressure chronic ulcer of skin of other sites limited to breakdown of skin; E11.40 Type 2 diabetes mellitus with diabetic neuropathy, unspecified; E11.36 Type 2 diabetes mellitus with diabetic cataract; E78.5 Hyperlipidemia, unspecified; I10 Essential (primary) hypertension; M19.90 Unspecified osteoarthritis, unspecified site; Z85.46 Personal history of malignant neoplasm of prostate; Z87.891 Personal history of nicotine dependence ==

== ENCOUNTER → 2019-03-22 | Outpatient (CLI) | payer MEDICARE | END | disposition home or self-care (01) | LOC: WOUNDCARE 01:24 | DX: E11.622 Type 2 diabetes mellitus with other skin ulcer (principal); L89.893 Pressure ulcer of other site, stage 3; L98.491 Non-pressure chronic ulcer of skin of other sites limited to breakdown of skin; E78.5 Hyperlipidemia, unspecified; I10 Essential (primary) hypertension; M19.90 Unspecified osteoarthritis, unspecified site; E11.40 Type 2 diabetes mellitus with diabetic neuropathy, unspecified; E11.36 Type 2 diabetes mellitus with diabetic cataract; Z85.46 Personal history of malignant neoplasm of prostate; Z87.891 Personal history of nicotine dependence ==

== ENCOUNTER 2019-04-21 11:24 | Inpatient (IN) | payer MEDICARE ==
[~2019-04-21] VITALS: Ht 177.8 cm; Wt 79.0 kg
--- NOTE | ~2019-04-21 | WRIGHTHP ---
[place], [place] PATIENT HISTORY AND PHYSICAL EXAM NAME: NIKI DAY [facility] #: [id number] UNIT #: [id number] ROOM: 524 DOCTOR: CATINA APODACA MD BIRTHDATE: [birth year] DOS: 04/21/2019 HISTORY OF PRESENT ILLNESS: The patient is an 83-year-old gentleman with a past medical history of: 1. Advanced disability and adult failure to thrive. 2. Chronic kidney disease, stage 3A. 3. Type 2 diabetes mellitus. 4. History of cancer of the prostate. 5. Mixed hyperlipidemia. 6. Benign essential hypertension. 7. Lacunar infarct of the left gerry and chronic small vessel disease changes on CT of the head. The patient presented to the Emergency Department at [facility] after he was walking outside and he blacked out, unconscious for some time. The patient had a complete workup in the Emergency Department including CT of the head and neck, which was normal, although his creatinine was elevated to 1.57, it used to be baseline before. There were no complaints of chest pain, shortness of breath, no GI or urinary symptoms. The patient was admitted for observation for at least 24 hours. After admission, the patient was feeling better now. The patient says he had only eaten 1 banana in the morning. SYSTEMS REVIEW: RESPIRATORY: No increasing shortness of breath. GASTROINTESTINAL: No nausea, vomiting, diarrhea, constipation. CARDIOVASCULAR SYSTEM: The patient had episode of loss of consciousness. ALLERGIES: No known drug allergies. PHYSICAL EXAMINATION: GENERAL APPEARANCE: The patient is alert and oriented x 3, in no visible distress. HEENT AND NECK: Extraocular movements are intact. Sclerae are anicteric. Oral mucosa is moist and clean. No obvious facial weakness. Neck is supple without any lymphadenopathy. No thyromegaly. No JVD. No carotid arterial bruits. LUNGS: Clear to auscultation. No wheezing. No rhonchi. CARDIOVASCULAR SYSTEM: Heart rate is regular in rate and rhythm. S1 and S2 normally audible. No significant murmur or any other abnormal cardiac sounds. ABDOMEN: Soft, nontender. No obvious organomegaly. Bowel sounds are present. No obvious herniation. EXTREMITIES: Without significant cyanosis or edema. Warm to touch. CENTRAL NERVOUS SYSTEM: Alert and oriented x 3. Cranial nerves II-XII are intact. Speech is normal. The patient is able to move all extremities. Normal muscle strength. Deep tendon reflexes are equal on both sides. Plantars were downgoing. IMPRESSION AND PLAN: 1. The patient with adult failure to thrive, had an episode of loss of consciousness. The patient was started on a repair order clerk and he remains in normal sinus rhythm. His home medications are being continued and he is started on physical therapy. [place], [place] PATIENT HISTORY AND PHYSICAL EXAM [facility]: [facility] [id number] UNIT #: [id number] ROOM: 524 DOCTOR: PAULIE KAET,CATINA Patel BIRTHDATE: [birth year] 2. Acute kidney failure with elevation of creatinine to 1.57 from baseline. I will start the patient on hydration on normal saline and hold back his Lasix for 1 day and repeat serum electrolytes, BUN and creatinine tomorrow morning. 3. Type 2 diabetes mellitus. Blood sugars to be treated. The patient remains on Januvia and he is to be kept on a no concentrated sweet diet. 4. Benign essential hypertension. Blood pressure to be monitored and treated. The patient to be continued on lisinopril and Coreg, which he was taking at home. 5. History of mixed hyperlipidemia to be treated accordingly. CATINA APODACA MD CM:HISPHYS:PATIENT HISTORY AND PHYSICAL EXAMINATION [id number] [phone] CATINA APODACA MD 04/21/191939 interface
--- NOTE | ~2019-04-21 | DS ---
[place], [place] DISCHARGE SUMMARY NAME: NIKI DAY [facility] #: [id number] UNIT #: [id number] ROOM: 524 DOCTOR: PAULIE KATECATINA J BIRTHDATE: [birth year] DOS: 04/22/2019 DISCHARGE DIAGNOSES: 1. Vasovagal syncope with episode of loss of consciousness. The patient was monitored for 1 day on a monitor worker at [facility]. 2. Acute kidney failure, vasomotor type, treated with hydration with normal saline. 3. Type 2 diabetes mellitus. 4. Benign essential hypertension. 5. Mixed hyperlipidemia. 6. Adult failure to thrive. 7. History of cancer of the prostate. 9. Lacunar infarct of the left gerry and chronic small vessel disease changes on CT of the head. HOSPITAL COURSE: The patient presented to the Emergency Department at [facility] when he was walking outside and blacked out, unconscious for some time. Evaluation of the patient in the Emergency Department was normal for CT of the head and neck and he was in sinus rhythm. The patient was put on a monitor worker after admission and he has remained in normal sinus rhythm and he is being discharged to home in a stable condition. The patient is able to walk by himself. Vasomotor acute kidney failure with elevation of BUN and creatinine to 1.57. The patient had only eaten a banana on the day of admission, which was yesterday and he was given normal saline, which has started improving his creatinine level, which is coming back to baseline, creatinine was 1.32 prior to discharge today. Type 2 diabetes mellitus with blood sugar level of 187. Blood sugars need to be monitored at home. The patient needs to follow up with Dr. Mariam Jhaveri, his PCP within a week of discharge. Benign essential hypertension. Blood pressures are treated and controlled. He remains on lisinopril and Coreg. Mixed hyperlipidemia, treated with atorvastatin. DISCHARGE MANAGEMENT: Lipitor 40 mg a day, Coreg 3.125 mg b.i.d., aspirin 325 mg a day, Plavix 75 mg a day, glyburide 10 mg a day, lisinopril 40 mg a day, Januvia 50 mg daily, FOLLOWUP: With Dr. Mariam Jhaveri within 1 week. [place], [place] DISCHARGE SUMMARY NAME: NIKI DAY UNIT #: [id number] ROOM: 524 DOCTOR: CATINA APODACA MD BIRTHDATE: [birth year] CATINA APODACA MD CM:CHARAN [id number] MARIAM APODACA MD 04/22/19 2006 interface
--- NOTE | ~2019-04-21 | EKG ---
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
--- NOTE | ~2019-04-21 | EKG ---
[place], [place] ELECTROCARDIOGRAM REPORT NAME: NIKI DAY UNIT #: [id number] ROOM: 524 DOCTOR: BALBINA DRAFT REPORT BIRTHDATE: [birth year] [facility] Test Date: 2019-04-21 Test Time: 17:29:55 Pat Name: NIKI DAY Department: Room: 524 Gender: M Regulatory Product Manager: Katherine Ramos : 1935 Requested By: ROSETTE HERRERA Order Number: [id number] Reading MD: Serafin Greenberg Measurements Intervals [place] Rate: 59 P: 53 AL: 174 QRS: -40 QRSD: 92 T: 54 QT: 399 QTc: 396 Interpretive Statements Sinus rhythm Atrial premature complexes Left anterior fascicular block Abnormal R-wave progression, early transition Minimal ST elevation, anterior leads Compared to ECG 01/31/2019 10:59:17 Atrial premature complex(es) now present Left anterior fascicular block now present ST (T wave) deviation now present Sinus arrhythmia no longer present Electronically Signed On 04-22-2019 9:06:03 PDT by Serafin Greenberg CM:EKGRPT:ELECTROCARDIOGRAM REPORT [id number] ROSETTE MORTENSEN DRAFT REPORT ROSETTE HERRERA MD
--- NOTE | ~2019-04-21 | EKG ---
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1935 Requested By: ROSETTE HERRERA Order Number: [id number] Reading MD: Serafin Greenberg Measurements Intervals [place] Rate: 65 P: 37 GA: 190 QRS: -32 QRSD: 89 T: 47 QT: 406 QTc: 423 Interpretive Statements Sinus rhythm Supraventricular bigeminy Left axis deviation Borderline ST elevation, anterior leads Compared to ECG 01/31/2019 10:59:17 Atrial premature complex(es) now present ST (T wave) deviation now present Sinus arrhythmia no longer present Electronically Signed On 04-22-2019 9:03:50 PDT by Serafin Greenberg CM:EKGRPT:ELECTROCARDIOGRAM REPORT [id number] ROSETTE MORTENSEN DRAFT REPORT ROSETTE HERRERA MD
[2019-04-21 11:25] VITALS: BP 127/70
[2019-04-21 11:46] LABS: BASO # 0.1 10*3/uL (0.0-0.1); BASO % 0.7 % (0.0-1.0); EOS # 0.1 10*3/uL (0.0-0.4); EOS % 1.6 % (1.0-4.0); HEMATOCRIT 31.3 % (42.0-52.0); HEMOGLOBIN 10.2 g/dl (14.0-18.0); LYMPH # 1.2 10*3/uL (1.3-4.4); LYMPH % 17.6 % (27.0-41.0); MEAN CELL VOLUME 86.9 fl (80.0-94.0); MEAN CORPUSCULAR HGB 28.3 pg (27.0-31.0); MEAN CORPUSCULAR HGB CONC 32.6 g/dl (33.0-37.0); MONO # 0.5 10*3/uL (0.1-1.0); MONO % 7.4 % (3.0-9.0); NEUT # 5.1 10*3/uL (2.3-7.9); NEUT % 72.4 % (47.0-73.0); PLATELET COUNT AUTOMATED 239 10*3/uL (130-400); RED CELL DISTRI WIDTH 13.2 % (0-14.5)
[2019-04-21 12:01] LABS: ACT PARTIAL THROMBO TIME 25.1 SECONDS (20.0-32.1); INTERNATIONAL NORM RATIO 0.9 (2.0-3.5)
[2019-04-21 12:02] LABS: ALBUMIN 3.1 gm/dl (3.1-4.5); ALKALINE PHOSPHATASE 108 U/L (45-117); BUN 16 mg/dl (7-24); CHLORIDE 103 mmol/L (98-107); CREATININE 1.57 mg/dL (0.70-1.30); POTASSIUM 4.5 mmol/L (3.5-5.1); SGOT/AST 5 IU/L (3-35); SGPT/ALT 13 U/L (12-78); SODIUM 134 mmol/L (136-145); TOTAL PROTEIN 6.7 gm/dL (6.4-8.2)
[2019-04-21 12:05] LABS: TROPONIN I < 0.015 ng/ml (<0.045)
--- NOTE | 2019-04-21 13:01 | NUR ---
LYING IN BED WATCHING TV. NO DISTRESS.
[2019-04-21 13:14] LABS: BILIRUBIN NEGATIVE (NEGATIVE); BLOOD TRACE-LYSED (NEGATIVE); CLARITY CLEAR (CLEAR); COLOR YELLOW (YELLOW); GLUCOSE 3+ (NEGATIVE); KETONE NEGATIVE (NEGATIVE); LEUKO ESTERASE NEGATIVE (NEGATIVE); NITRITE NEGATIVE (NEGATIVE); SPECIFIC GRAVITY 1.015 (1.005-1.030); UROBILINOGEN 0.2 E.U./dl (0.2-1.0)
--- NOTE | 2019-04-21 13:18 | NUR ---
PT BELONGONGS BALLED, SHIRT X 2, JEANS, BELT, SOCKS, SHOES, GOLD WATCH. PT HAS WALLET IN HIS HAND.
[2019-04-21 13:24] VITALS: BP 143/80
[2019-04-21 13:24] LABS: BACTERIA TRACE; EPITHELIAL CELLS 0-2
--- NOTE | 2019-04-21 14:26 | NUR ---
ADULT BRIEF CHANGED FOR A LARGE AMOUNT OF URINE.
[2019-04-21 14:27] VITALS: BP 180/95
--- NOTE | 2019-04-21 14:45 | NUR ---
PT HAS CELL PHONE AND WALLET IN HIS POSESSION.
--- NOTE | 2019-04-21 14:50 | NUR ---
A 83, admitted to 5E, under the services of Dr. PAULIE KATE,CATINA Patel with a diagnosis of SYNCOPE,CHRONIC KID DISEASE. Chief complaint is WEAKNESS. Patient arrived via stretcher from ER. Monitor applied. Initial assessment completed. Vital signs taken and recorded. DR. PAULIE KATE,CATINA Patel notified of admission to the unit. Orders received. See assessment for past medical history, medications and allergies. Patient and/or family oriented to unit. Clothing/patient valuable form completed. NELLY CALVILLO
[2019-04-21 15:00] VITALS: BP 158/62
[2019-04-21 16:00] VITALS: BP 186/71
--- NOTE | 2019-04-21 19:50 | NUR ---
24 HR chart check completed.
[2019-04-21 20:00] VITALS: BP 153/64
--- NOTE | 2019-04-21 20:30 | NUR ---
AWAKE, RESTING IN BED WITH NO ACUTE DISTRESS NOTED. AGUA CALIENTE. RESPIRATIONS EASY. LUNGS DIMINISHED, CLEAR. PULSE OX 96% RA. OFFERED AND EDUCATED REGARDING TEDS, TEDS PLACED AT BEDSIDE. IV FLUIDS INFUSING PER ORDER. CALL LIGHT WITHIN REACH. NO VOICED COMPLAINTS
--- NOTE | 2019-04-21 23:00 | NUR ---
SLEEPING. RESPIRATIONS EASY. CALL LIGHT WITHIN REACH. BED ALARM MAINTAINED
[2019-04-22] VITALS: BP 183/65
--- NOTE | 2019-04-22 00:30 | NUR ---
SLEEPING. RESPIRATIOBS EASY. VSS. IV FLUIDS MAINTAINED. CALL LIGHT WITHIN REACH. BED ALARM MAINTAINED FOR SAFETY
--- NOTE | 2019-04-22 06:00 | NUR ---
SLEPT THROUGHOUT NIGHT WITH NO DISTRESS NOTED. RESPIRATIONS EASY. IV FLUIDS MAINTAINED X 1 LITER. CALL LIGHT WITHIN REACH. NO VOICED COMPLAINTS THIS SHIFT. BED ALARM MAINTAINED FOR SAFETY
[2019-04-22 06:41] LABS: BASO % 0.5 % (0.0-1.0); EOS # 0.1 10*3/uL (0.0-0.4); EOS % 1.6 % (1.0-4.0); HEMATOCRIT 32.3 % (42.0-52.0); HEMOGLOBIN 10.4 g/dl (14.0-18.0); LYMPH # 1.8 10*3/uL (1.3-4.4); MEAN CORPUSCULAR HGB 28.3 pg (27.0-31.0); MEAN CORPUSCULAR HGB CONC 32.2 g/dl (33.0-37.0); MEAN PLATELET VOLUME 10.1 fl (9.6-12.3); MONO # 0.6 10*3/uL (0.1-1.0); MONO % 6.9 % (3.0-9.0); NEUT # 5.4 10*3/uL (2.3-7.9); NEUT % 67.5 % (47.0-73.0); PLATELET COUNT AUTOMATED 238 10*3/uL (130-400); RED BLOOD COUNT 3.67 10*6/uL (4.50-5.90); RED CELL DISTRI WIDTH 13.2 % (0-14.5)
[2019-04-22 07:00] LABS: BUN 16 mg/dl (7-24); CHLORIDE 106 mmol/L (98-107); POTASSIUM 4.2 mmol/L (3.5-5.1); SODIUM 139 mmol/L (136-145)
[2019-04-22 07:02] LABS: CREATININE 1.32 mg/dL (0.70-1.30)
--- NOTE | 2019-04-22 14:15 | NUR ---
PATIENT DISCHARGED TO HOME VIA CAB.
--- NOTE | 2019-04-23 08:23 | NUR ---
Nursing screen received Tuesday04/21/19 and patient discharged 04/22/19. Skyla Velazquez OTR/L
== END 2019-04-22 14:15 | disposition home or self-care (01) | DRG 684 ==
LOC: ED 11:24 → EDHOLD 14:09 → 5E 14:39
PROVIDERS: Emergency Medicine; ADMIT Internal Medicine
DX: N17.0 Acute kidney failure with tubular necrosis (principal); E78.2 Mixed hyperlipidemia; R62.7 Adult failure to thrive; N18.3 Chronic kidney disease, stage 3 (moderate); R55 Syncope and collapse; E11.22 Type 2 diabetes mellitus with diabetic chronic kidney disease; I12.9 Hypertensive chronic kidney disease with stage 1 through stage 4 chronic kidney disease, or unspecified chronic kidney disease; W18.30XA Fall on same level, unspecified, initial encounter; S20.301A Unspecified superficial injuries of right front wall of thorax, initial encounter; X58.XXXA Exposure to other specified factors, initial encounter; Y92.89 Other specified places as the place of occurrence of the external cause; Y92.481 Parking lot as the place of occurrence of the external cause; Y93.89 Activity, other specified; Y99.8 Other external cause status; Z85.46 Personal history of malignant neoplasm of prostate; Z91.81 History of falling; Z87.440 Personal history of urinary (tract) infections; Z86.73 Personal history of transient ischemic attack (TIA), and cerebral infarction without residual deficits; Z68.25 Body mass index [BMI] 25.0-25.9, adult

== ENCOUNTER 2019-05-04 14:04 | Inpatient (IN) | payer MEDICARE ==
[~2019-05-04] VITALS: Ht 177.8 cm; Wt 79.4 kg
--- NOTE | ~2019-05-04 | PR ---
[place], [place] PROGRESS NOTE [id number] UN[facility] #: [id number] ROOM: 509 DOCTOR: CATINA APODACA MD BIRTHDATE: [birth year] DOS: SUBJECTIVE: The patient without new complaints, just generalized weakness. OBJECTIVE: VITAL SIGNS: Blood pressure 157/75, heart rate of 67 beats per minute, breathing 18 times per minute, temperature 98 degrees Fahrenheit. GENERAL APPEARANCE: The patient is alert and oriented x 3, in no visible distress, except for generalized weakness. HEENT AND NECK: Exam within normal limits. CARDIOVASCULAR SYSTEM: Heart rate is regular in rate and rhythm. S1 and S2 normally audible. LUNGS: Clear to auscultation. ABDOMEN: Soft, nontender. No obvious organomegaly. Bowel sounds are present. EXTREMITIES: Without significant cyanosis or edema. IMPRESSION AND PLAN: 1. Adult failure to thrive. House Worker have been consulted for placement. The patient is unable to live by himself. 2. Ambulatory dysfunction. The patient to work with Physical Therapy. 3. Diabetes mellitus. The patient is on glipizide and Januvia and on no concentrated sweet diet. 4. Blood sugars have been normal. 5. Benign essential hypertension, being treated. Blood pressure is monitored. The patient is on amlodipine. 6. Mixed hyperlipidemia, being treated with atorvastatin. CATINA APODACA MD CM:PNTRANS [id number] CATINA APODACA MD 05/06/19 1835 interface
--- NOTE | ~2019-05-04 | DS ---
[place], [place] DISCHARGE SUMMARY NAME: NIKI DAY UNIT #: [id number] ROOM: 509 DOCTOR: CATINA APODACA MD BIRTHDATE: [birth year] DOS: 05/07/2019 DISCHARGE DIAGNOSES: 1. Advanced adult failure to thrive. 2. Ambulatory dysfunction. 3. Type 2 diabetes mellitus. 4. Benign essential hypertension. 5. Mixed hyperlipidemia. 6. Lacunar infarct of the left gerry and chronic small vessel disease changes on CT of the head. 7. History of cancer of the prostate. HOSPITAL COURSE: The patient was admitted to [facility] when he presented with adult failure to thrive and being unable to take care of himself at home. The patient was admitted, started on physical therapy and Manager [employer] were consulted to arrange for him to go to [facility]. Diabetes mellitus. Blood sugars monitored and are reasonably controlled. The patient remained on glipizide and Januvia. Mixed hyperlipidemia, treated with atorvastatin. Benign essential hypertension. The patient remains on amlodipine and blood pressure is staying normal. Mixed hyperlipidemia, diet controlled. LABORATORY DATA: Urine cultures negative. BUN and creatinine 21 and 1.5, otherwise normal serum electrolytes. Hemoglobin 11.7, otherwise normal CBC, normal platelets. DISCHARGE MANAGEMENT: Amlodipine 5 mg a day, Plavix 75 mg a day, atorvastatin 40 mg daily, Coreg 3.125 mg daily, glipizide 10 mg daily, aspirin 325 mg a day, furosemide 20 mg a day, lisinopril 40 mg a day, Januvia 50 mg a day. [place], [place] DISCHARGE SUMMARY NAME: NIKI DAY UNIT #: [id number] ROOM: 509 DOCTOR: CATINA APODACA MD BIRTHDATE: [birth year] CATINA APODACA MD CM:DISCHARG [id number] CATINA APODACA MD 05/07/19 1536 interface
--- NOTE | ~2019-05-04 | WRIGHTHP ---
[place], [place] PATIENT HISTORY AND PHYSICAL EXAM NAME: NIKI DAY [facility] #: [id number] UNIT #: [id number] ROOM: 509 DOCTOR: CATINA APODACA MD BIRTHDATE: [birth year] DOS: 05/04/2019 HISTORY OF PRESENT ILLNESS: 1. The patient is an 83-year-old gentleman who lives at home by himself with past medical history of type 2 diabetes mellitus. 2. Benign essential hypertension. 3. Mixed hyperlipidemia. 4. Advanced adult failure to thrive. 5. History of cancer of the prostate. 6. Lacunar infarct of the left gerry and chronic small vessel disease changes on CT of the head. The patient presented to the Emergency Department at [facility] and was seen by Damaris Busch with unable to take care of himself and wanted to be placed at a senior care. The patient's PCP sent him over to the Emergency Department. He has a history of dementia, advanced adult failure to thrive. The patient states he is very lonely at home. 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 No chest pain, shortness of breath, no GI or urinary symptoms. REVIEW OF SYSTEMS: RESPIRATORY: No increasing shortness of breath. GASTROINTESTINAL: No nausea, vomiting, diarrhea, constipation. CARDIOVASCULAR: No chest pain or palpitations. RESPIRATORY: No increasing shortness of breath or wheezing. FAMILY HISTORY: Noncontributory. HOME MEDICATIONS: Atorvastatin, Januvia, glipizide, lisinopril, Coreg, Plavix, aspirin, furosemide, iron. ALLERGIES: No known drug allergies. PHYSICAL EXAMINATION: GENERAL: Alert, oriented x 3, very hard of hearing, in no visible distress, generalized weakness and the patient is very hard of hearing. HEENT AND NECK: Extraocular movements are intact. Sclerae are anicteric. Oral mucosa is moist and clean. No obvious facial weakness. Neck is supple without any lymphadenopathy. No thyromegaly. No JVD. No carotid arterial bruits. LUNGS: Clear to auscultation. No wheezing. No rhonchi. CARDIOVASCULAR SYSTEM: Heart rate is regular in rate and rhythm. S1 and S2 normally audible. No significant murmur or any other abnormal cardiac sounds. ABDOMEN: Soft, nontender. No obvious organomegaly. Bowel sounds are present. No obvious herniation. EXTREMITIES: Without significant cyanosis or edema. Warm to touch. CENTRAL NERVOUS SYSTEM: Alert and oriented x 3. Cranial nerves II-XII are [place], [place] PATIENT HISTORY AND PHYSICAL EXAM NAME: NIKI DAY UNIT #: [id number] ROOM: [facility] DOCTOR: CATINA APODACA MD BIRTHDATE: [birth year] intact. Speech is normal. The patient is able to move all extremities. Normal muscle strength. Deep tendon reflexes are equal on both sides. Plantars were downgoing. LABORATORY DATA: Urine cultures negative. BUN and creatinine 21 and 1.5. Normal serum electrolytes, otherwise normal CBC except for hemoglobin 11.7, normal platelets. IMPRESSION: 1. The patient with advanced adult failure to thrive. I am consulting psychotherapist social worker for placement. 2. Ambulatory dysfunction. The patient worked with physical therapy. 3. Benign essential hypertension to be treated with amlodipine. 4. Mixed hyperlipidemia, treated with atorvastatin. 5. Diabetes mellitus. The patient is on glipizide and Januvia. He will be kept on no concentrated sweet diet and followed closely. CATINA APODACA MD CM:HISPHYS:PATIENT HISTORY AND PHYSICAL EXAMINATION 00 26 CATINA APODACA MD 05/05/192026 interface
--- NOTE | ~2019-05-04 | EKG ---
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: Erin Harris : 1935 Requested By: BEHZAD ATKINS PA-C Order Number: [id number] Reading MD: Serafin Greenberg Measurements Intervals [place] Rate: 51 P: 25 SC: 186 QRS: -37 QRSD: 92 T: 5 QT: 418 QTc: 385 Interpretive Statements Sinus rhythm Atrial premature complexes Left axis deviation Anteroseptal infarct, old Compared to ECG 04/21/2019 17:29:55 Left-axis deviation now present Myocardial infarct finding now present Left anterior fascicular block no longer present ST (T wave) deviation no longer present Electronically Signed On 05-06-2019 8:52:00 PDT by Serafin Greenberg CM:EKGRPT:ELECTROCARDIOGRAM REPORT [id number] BEHZAD ATKINS PA-C EPIPHANY DRAFT REPORT BEHZAD ATKINS PA-C
[2019-05-04 14:06] VITALS: BP 176/89
[2019-05-04 14:42] LABS: BASO % 0.5 % (0.0-1.0); EOS # 0.1 10*3/uL (0.0-0.4); EOS % 1.3 % (1.0-4.0); HEMATOCRIT 36.6 % (42.0-52.0); HEMOGLOBIN 11.7 g/dl (14.0-18.0); LYMPH # 1.7 10*3/uL (1.3-4.4); MEAN CELL VOLUME 88.8 fl (80.0-94.0); MEAN CORPUSCULAR HGB 28.4 pg (27.0-31.0); MEAN PLATELET VOLUME 9.6 fl (9.6-12.3); MONO # 0.6 10*3/uL (0.1-1.0); MONO % 7.2 % (3.0-9.0); NEUT # 5.5 10*3/uL (2.3-7.9); NEUT % 69.7 % (47.0-73.0); PLATELET COUNT AUTOMATED 264 10*3/uL (130-400); RED BLOOD COUNT 4.12 10*6/uL (4.50-5.90); RED CELL DISTRI WIDTH 13.3 % (0-14.5); WHITE BLOOD COUNT 7.9 10*3/uL (4.8-10.8)
[2019-05-04 14:53] LABS: BILIRUBIN NEGATIVE (NEGATIVE); BLOOD 1+ (NEGATIVE); CLARITY CLEAR (CLEAR); COLOR YELLOW (YELLOW); GLUCOSE TRACE (NEGATIVE); KETONE TRACE (NEGATIVE); LEUKO ESTERASE NEGATIVE (NEGATIVE); NITRITE NEGATIVE (NEGATIVE); PH 5.5 (5.0-9.0); SPECIFIC GRAVITY >= 1.030 (1.005-1.030); UROBILINOGEN 0.2 E.U./dl (0.2-1.0)
[2019-05-04 14:57] LABS: ALBUMIN 3.6 gm/dl (3.1-4.5); ALKALINE PHOSPHATASE 112 U/L (45-117); BUN 21 mg/dl (7-24); CHLORIDE 106 mmol/L (98-107); POTASSIUM 3.8 mmol/L (3.5-5.1); SGOT/AST 9 IU/L (3-35); SGPT/ALT 14 U/L (12-78); SODIUM 139 mmol/L (136-145)
[2019-05-04 15:01] LABS: URINE AMPHETAMINES < 1000 (1000ng/ml); URINE BARBITURATES < 200 (200ng/ml); URINE BENZODIAZEPINES < 200 (200ng/ml); URINE CANNABINOIDS (THC) < 50 (50ng/ml); URINE COCAINE < 300 (300ng/ml); URINE METHADONE < 300 (300ng/ml); URINE OPIATES < 300 (300ng/ml); URINE PHENCYCLIDINE < 25 (25ng/ml)
[2019-05-04 15:11] LABS: ETHYL ALCOHOL < 3.0 mg/dl (<3)
[2019-05-04 15:13] LABS: ACETAMINOPHEN (TYLENOL) < 2.0 ug/ml (10-30)
[2019-05-04 15:16] LABS: BACTERIA 2+
[2019-05-04 20:00] VITALS: BP 138/72
[2019-05-05] VITALS: BP 152/55
[2019-05-05 08:14] VITALS: BP 149/66
[2019-05-05 12:05] VITALS: BP 137/56
[2019-05-05 16:06] VITALS: BP 145/63
[2019-05-05 20:00] VITALS: BP 154/62
[2019-05-06] VITALS: BP 148/60
[2019-05-06 08:00] VITALS: BP 157/75
[2019-05-06 12:00] VITALS: BP 169/78
[2019-05-06 16:00] VITALS: BP 143/65
[2019-05-06 20:00] VITALS: BP 141/57
[2019-05-07] VITALS: BP 139/69
[2019-05-07 08:00] VITALS: BP 110/60
[2019-05-07 12:00] VITALS: BP 111/67
[2019-05-07] MEDS ORDERED: AMLODIPINE BESYL5 MG PO (14:50)
[2019-05-07 16:00] VITALS: BP 138/75
== END 2019-05-07 17:11 | disposition other institution (70) | DRG 641 ==
LOC: ED 14:04 → EDHOLD 15:36 → 5E 15:36
PROVIDERS: Physician Assistant; ADMIT Internal Medicine
DX: R62.7 Adult failure to thrive (principal); I10 Essential (primary) hypertension; F03.90 Unspecified dementia, unspecified severity, without behavioral disturbance, psychotic disturbance, mood disturbance, and anxiety; E11.9 Type 2 diabetes mellitus without complications; E78.2 Mixed hyperlipidemia; Z85.46 Personal history of malignant neoplasm of prostate; Z86.73 Personal history of transient ischemic attack (TIA), and cerebral infarction without residual deficits; Z79.84 Long term (current) use of oral hypoglycemic drugs; Z68.25 Body mass index [BMI] 25.0-25.9, adult

== ENCOUNTER 2019-09-27 11:41 | Inpatient (IN) | payer MEDICARE ==
[~2019-09-27] VITALS: Ht 180.3 cm; Wt 74.5 kg
[2019-09-27 11:42] VITALS: BP 161/88
[2019-09-27 12:38] LABS: BASO % 0.4 % (0.0-1.0); EOS # 0.1 10*3/uL (0.0-0.4); HEMATOCRIT 35.1 % (42.0-52.0); HEMOGLOBIN 11.1 g/dl (14.0-18.0); LYMPH # 1.3 10*3/uL (1.3-4.4); LYMPH % 15.4 % (27.0-41.0); MEAN CELL VOLUME 85.6 fl (80.0-94.0); MEAN CORPUSCULAR HGB 27.1 pg (27.0-31.0); MEAN CORPUSCULAR HGB CONC 31.6 g/dl (33.0-37.0); MEAN PLATELET VOLUME 9.9 fl (9.6-12.3); MONO # 0.5 10*3/uL (0.1-1.0); MONO % 6.6 % (3.0-9.0); NEUT # 6.3 10*3/uL (2.3-7.9); NEUT % 76.4 % (47.0-73.0); PLATELET COUNT AUTOMATED 306 10*3/uL (130-400); RED CELL DISTRI WIDTH 13.2 % (0-14.5); WHITE BLOOD COUNT 8.2 10*3/uL (4.8-10.8)
[2019-09-27 12:47] LABS: ACT PARTIAL THROMBO TIME 27.8 SECONDS (20.0-32.1)
[2019-09-27 12:52] LABS: ALBUMIN 3.1 gm/dl (3.1-4.5); ALKALINE PHOSPHATASE 106 U/L (45-117); BUN 22 mg/dl (7-24); CHLORIDE 104 mmol/L (98-107); CREATININE 1.49 mg/dL (0.70-1.30); LIPASE 327 U/L (73-393); POTASSIUM 4.4 mmol/L (3.5-5.1); SGOT/AST 8 IU/L (3-35); SGPT/ALT 19 U/L (12-78); SODIUM 137 mmol/L (136-145); TOTAL PROTEIN 7.1 gm/dL (6.4-8.2); TROPONIN I < 0.015 ng/ml (<0.045)
--- NOTE | 2019-09-27 13:37 | NUR ---
PT REMAINS W/O ACUTE DISTRESS NOTED AWAITING ALL RESULTS FOR ADDITIONAL PLAN OF CARE,PT POSITIONED FOR COMFORT WITH T.V. PROVIDED,SAFETY PRECAUTIONS INTACT AND CALL LIGHT WITHIN REACH,NO COMPLAINTS VOICED.PT REFUSING STRAIGHT CATHETER FOR URINE SAMPLE @ THIS TIME WITH CHARLINE EDMONDS DNP NOTIFIED.
--- NOTE | 2019-09-27 13:51 | NUR ---
PT WITH ABRAIONS NOTED TO KNEE AND SMALL ONES TO EXTREMITIES W/O ACTIVE BLEEDING NO ADDITIONAL WOUNDS NOTED DURING EVAL.
[2019-09-27 14:15] VITALS: BP 154/80
--- NOTE | 2019-09-27 15:32 | NUR ---
PT DENIES TAKING ANY MEDICATIONS SINCE JANUARY(PER PT).
[2019-09-27 16:13] VITALS: BP 148/88
--- NOTE | 2019-09-27 16:26 | NUR ---
Time: 1625 A 83 year old MALE admitted to 5E under services of EVONNE SCHNEIDER MD. Pt. arrived via bed from ER. Chief complaint: BASIC OTHER. SCOTT PONCE
--- NOTE | 2019-09-27 17:07 | NUR ---
PT DENIES TAKING ANY MEDS AT HOME
--- NOTE | 2019-09-27 17:43 | NUR ---
SPOKE TO DR TORRES AND RECEIVED NEW ADMIT ORDERS
[2019-09-27 18:00] VITALS: BP 153/80
[2019-09-27 20:00] VITALS: BP 151/62
--- NOTE | 2019-09-27 20:08 | NUR ---
PATIENT ALERT, ORIENTED, RESTING IN BED, RESPIRATIONS EASY AND REGULAR ON ROOM AIR. PATIENT VERY [place], OFFERS NO COMPLAINTS. ASSESSMENT COMPLETE. CALL LIGHT WITHIN REACH.
[2019-09-28] VITALS: BP 120/76
--- NOTE | 2019-09-28 | NUR ---
PATIENT SLEEPING; EASY RESPIRATIONS ON ROOM AIR. BED IN LOWEST, LOCKED POS. CALL LIGHT WITHIN REACH.
--- NOTE | 2019-09-28 07:48 | NUR ---
Nursing screen received and Occupational Therapy referral received. Thank you. Skyla Velazquez OTR/l
--- NOTE | 2019-09-28 07:54 | NUR ---
PHYSICAL THERAPY Screen received as well as orders for PT will follow thank you Alpa Watkins PT
[2019-09-28 09:00] VITALS: BP 162/83
--- NOTE | 2019-09-28 09:00 | NUR ---
Accounts Payable Associate in to talk to patient. Patient states lives at home alone with his son checking in on him. There are 11-12 steps in the home. Physician: Dr. Cortez Jhaveri Pharmacy: [facility] services: none Patient's level of ADLs: MINIMAL ASSIST Patient has working utilities: yes DME: cane Follow-up physician's appointment after d/c: he prefers to make his own follow up appt after discharge Does patient want to access PORTAL?: no Discharge plan discussed with patient. He lives at home with his son checking in on him. He needs minimal assistance with his ADLs and ambulates with a cane. Discussed short term SNF and he is agreeable. When provided with a list of facilities he chose [facility]. orchard worker following. His son will provide transportation on discharge. DUSTY MONTOYA
--- NOTE | 2019-09-28 10:30 | NUR ---
Occupational Therapy evaluation completed on 5 with full eval to follow. Precautions include fall risk, new ww use,weakness,impaired ADLs,mobility and safety,moderate complexity level 95139. Recommend OT per POC to address above and SNF to enable max ability to function. Thank you. Skyla Velazquez Otr/L
--- NOTE | 2019-09-28 10:55 | NUR ---
PROGRAM REP faxed new referral to [facility]. PRECERT will be required. Will need PT/OT Evals to complete Referral. -CINDY Nguyễn
--- NOTE | 2019-09-28 11:18 | NUR ---
CINDY received phone call from Judie Thomas-MAG. Patient case was recently closed with [facility], however it has now been reopened. Judie asked that the patient receive a Compentency. Judie stated she would be in to see the patient at some point today. Nursing Education Specialist Megan is aware. -CINDY Nguyễn
--- NOTE | 2019-09-28 11:37 | NUR ---
PHYSICAL THERAPY Sage completed moderated level of complexity 24366 recomend SNF at discharge PT to work on transfers,amb with AD, balance/safety, strengthening Alpa Watkins PT
[2019-09-28 12:00] VITALS: BP 158/76
--- NOTE | 2019-09-28 13:46 | NUR ---
Patient has been accepted to [facility]. NEWS SPECIALIST faxed PT/OT Evals, PRECERT has been started. -CINDY Nguyễn
[2019-09-28 16:00] VITALS: BP 189/76
--- NOTE | 2019-09-28 16:14 | NUR ---
CINDY was notified by [facility] that the patient is no longer in network with their facility as the patients insurance termed on 09/25/2019. Patient now has [employer] Medicare per [facility]. [employer] Megan has been notified. -CINDY Nguyễn
[2019-09-28 20:00] VITALS: BP 147/51
[2019-09-29] VITALS: BP 158/72
--- NOTE | 2019-09-29 01:21 | NUR ---
PATIENT GIVEN NORCO FOR RT TOE PAIN.
[2019-09-29 06:36] LABS: BASO % 0.5 % (0.0-1.0); EOS # 0.1 10*3/uL (0.0-0.4); EOS % 1.7 % (1.0-4.0); HEMATOCRIT 32.4 % (42.0-52.0); HEMOGLOBIN 10.3 g/dl (14.0-18.0); LYMPH # 2.1 10*3/uL (1.3-4.4); LYMPH % 25.8 % (27.0-41.0); MEAN CELL VOLUME 87.1 fl (80.0-94.0); MEAN CORPUSCULAR HGB 27.7 pg (27.0-31.0); MEAN CORPUSCULAR HGB CONC 31.8 g/dl (33.0-37.0); MEAN PLATELET VOLUME 10.2 fl (9.6-12.3); MONO # 0.7 10*3/uL (0.1-1.0); MONO % 8.8 % (3.0-9.0); NEUT # 5.2 10*3/uL (2.3-7.9); PLATELET COUNT AUTOMATED 281 10*3/uL (130-400); RED BLOOD COUNT 3.72 10*6/uL (4.50-5.90); RED CELL DISTRI WIDTH 13.2 % (0-14.5); WHITE BLOOD COUNT 8.2 10*3/uL (4.8-10.8)
[2019-09-29 06:59] LABS: CREATININE 1.43 mg/dL (0.70-1.30); POTASSIUM 4.1 mmol/L (3.5-5.1)
[2019-09-29 08:00] VITALS: BP 177/69
[2019-09-29 10:19] VITALS: BP 110/50
[2019-09-29 12:00] VITALS: BP 168/54
--- NOTE | 2019-09-29 13:22 | NUR ---
CINDY SPOKE WITH THE PATIENT AND HE STATED HE WOULD LIKE TO BE REFERRED TO [facility]. PRECERT WILL BE REQUIRED AND CANNOT BE STARTED UNTIL Tuesday10/01/2019 INSURANCE AND REPS FROM [facility] ARE NOT AVAILABLE UNTIL THEN. -CINDY LIU
[2019-09-29 16:00] VITALS: BP 156/62
--- NOTE | 2019-09-29 17:49 | NUR ---
C/O BACK PAIN OF 03/05. TYLENOL GIVEN AT THIS TIME. WILL CONT TO MONITOR. CALL LIGHT IN REACH.
[2019-09-29 20:00] VITALS: BP 130/58
--- NOTE | 2019-09-29 20:54 | NUR ---
24 HR chart check completed.
[2019-09-30] VITALS: BP 148/62
--- NOTE | 2019-09-30 04:00 | NUR ---
PT. SLEEPING COUGHED COUPLE TIMES DURING SLEEP.
[2019-09-30 16:00] VITALS: BP 141/60
--- NOTE | 2019-09-30 19:20 | NUR ---
PT ASSISTED UP TO VENDING MACHINE AND BACK INTO BED BY RN. PT REFUSING TO STAY IN BED AND ALLOW RN OR PA TO GET HIS SNACK. STATES HE DIDN'T ORDER THE DINNER HE RECEIVED AND ISN'T HAPPY. RN OFFERED A BOXED LUNCH. PATIENT STATES "NOPE" AND KEEPS ATTEMPTING TO WALK WITHOUT ASSISTANCE. RN CALMLY EXPLAINED WHY IT WAS IMPORTANT FOR SOMEONE TO BE WITH HIM WHILE OUT OF BED HE IS UNSTEADY. PT STATES "I DON'T CARE." PT ASSISTED BACK INTO ROOM, BED ALARM REAPPLIED. WILL MONITOR. CALL LIGHT IN REACH.
[2019-09-30 21:59] LABS: BILIRUBIN NEGATIVE (NEGATIVE); BLOOD TRACE-INTACT (NEGATIVE); CLARITY CLEAR (CLEAR); COLOR YELLOW (YELLOW); GLUCOSE 2+ (NEGATIVE); KETONE NEGATIVE (NEGATIVE); LEUKO ESTERASE NEGATIVE (NEGATIVE); NITRITE NEGATIVE (NEGATIVE); PH 5.5 (5.0-9.0); SPECIFIC GRAVITY 1.025 (1.005-1.030); UROBILINOGEN 0.2 E.U./dl (0.2-1.0)
[2019-10-01] VITALS: BP 151/73
--- NOTE | 2019-10-01 03:32 | NUR ---
PT ASLEEP IN BED. RESPIRATIONS EASY. NO S/S OF DISTRESS NOTED. WILL MONITOR. CALL LIGHT IN REACH.
--- NOTE | 2019-10-01 04:22 | NUR ---
PT ASSISTED UP TO BATHROOM AND BACK INTO BED. WARM BLANKET PROVIDED PER REQUEST. BED LEFT LOCKED IN LOW POSITION, BED ALARM INTACT, CALL LIGHT IN REACH.
[2019-10-01 08:00] VITALS: BP 145/80
--- NOTE | 2019-10-01 08:16 | NUR ---
PT GIVEN TYLENOL FOR C/O LEG PAIN. WILL MONITOR FOR EFFECTIVENESS. PT SITTING UP IN BED EATING BREAKFAST. CALL LIGHT IN REACH.
--- NOTE | 2019-10-01 08:30 | NUR ---
PROFESSOR OF NURSING faxed referral to [facility] for review. PRECERT will be required. Will await acceptance/denial. -CINDY Nugyễn
--- NOTE | 2019-10-01 09:11 | NUR ---
PHYSICAL THERAPY TREATMENT TIME: 08:55 AM - 09:15 AM Patient presented to therapy in supine with head bed elevated and bed alarm activated. Patient was just finisihing breakfast. Patient gives informed consent for treatment. Patient was identified by name and on wristband. Patient performed supine to sitting at EOB with MIN A X 1. Patient sat on EOB with SBA. Patient sit to stand from EOB with MIN A X 1. Patient perfomred ambulation with Wh Walker and CGA X 2 for 60' x 2 with one LOB while turning, requiring MIN A X 1 by therapist to correct to upright position. Patient is retropulsive in standing rolling back on his heels, requring MIN A X 1 to correct. Patient performed sit ot stand out of low chair with MIN A X 1 AND VERBAL CUES FOR PUSHING OFF THE ARMRESTS OF CHAIR WITH HANDS. Patient transferred into bedside chair with CGA X 1 with verbal cues for putting hands back on armrests of chair. Patient was left in bedside chair with chair alarm tested and attached to patient. Patient was also left with call light within reach and LEs elevated. Patient was 1:1 with this SERVICE ORDER EXPEDITER for 20 minutes total. SHIRLEY MATA SERVICE ORDER EXPEDITER
--- NOTE | 2019-10-01 09:13 | NUR ---
OT NOTE PATIENT SEEN 1:1 OT THIS DATE. PATIENT SEEN 15 MINUTES THIS DATE. PATIENT IN BED UPON ARRIVAL. PATIENT INDENTIFIED BY NAME AND DATE OF . PATIENT COMPLETED SIT TO STAND FROM BED CGA AND COMPLETED FUNCTIONAL AMBULATION TO BATHROOM USE FWW CGA. PATIENT COMPLETED TOILET TRANSFER MIN A WITH EDUCATION USE GRAB BAR FOR SAFETY SECONDARY PATIENT DEMONSTRATING DECREASE SAFETY AWARENESS AND IMPULSIVITY. COMPLETED GROOMING STANDING AT SINK MAX A TO SEQUENCE WASHING HANDS AND MIN A COMB HAIR FOR THOROUGHNESS. PATIENT REQUIRED VERBAL CUES INCREASE WEIGHT INTO BALL OF FEET STANDING AT SINK TO COMPLETE GROOMING TASK WITH PATIENT ABLE TO SELF CORRECT WITH VERBAL CUEING FOR FALL PREVENTION. PATIENT COMPLETED FUNCTIONAL AMBULATION FROM BATHROOM USE FWW TO RECLINER CGA WITH MOD VERBAL CUES SAFETY WITH TURNS. PATIENT COMPLETED LB/UB DRESSING TO DOFF/BROOKE GOWN AND SOCKS MIN A. PATIENT SEATED IN RECLINER WITH CHAIR ALARM ATTACHED AND TRAY IN PLACE AND CALL LIGHT WITHIN REACH. NO FURTHER NEEDS VERBALIZED. CONTINUE TOWARDS PLAN OF CARE. DANETTE ANDERSEN/Ever
--- NOTE | 2019-10-01 09:16 | NUR ---
TYLENOL EFFECTIVE PER PT.
[2019-10-01 12:00] VITALS: BP 138/71
[2019-10-01 16:00] VITALS: BP 157/82
--- NOTE | 2019-10-01 16:13 | NUR ---
SPOKE WITH DR TORRES ABOUT PT PULLING OUT IVS DR TORRES SAID TO D/C IV
[2019-10-01 20:00] VITALS: BP 133/52
--- NOTE | 2019-10-01 20:11 | NUR ---
RN WALKED WITH PT TO VENDING MACHINES AND BACK INTO ROOM AT THIS TIME. PT ASSISTED TO REPOSITION IN BED. BED LEFT LOCKED IN LOW POSITION, BED ALARM INTACT, CALL LIGHT IN REACH.
[2019-10-02] VITALS: BP 163/63
--- NOTE | 2019-10-02 02:34 | NUR ---
NEW IV INITIATED IN LAC PER POLICY. IV ZOFRAN ADMINISTERED AT THIS TIME FOR C/O NAUSEA W/ 2 EPISODES OF EMESIS. WILL MONITOR EFFECTIVENESS. PT REPOSITIONED IN BED. PT LAYING ON R SIDE WITH HOB ELEVATED. CALL LIGHT IN REACH. BED ALARM INTACT.
--- NOTE | 2019-10-02 05:58 | NUR ---
PT BSG 228. PO AMARYL GIVEN AT THIS TIME. PO TYLENOL ALSO ADMINISTERED PER PRN ORDER FOR C/O ALL OVER ACHES. WILL MONITOR. CALL LIGHT IN REACH. BED ALARM INTACT.
--- NOTE | 2019-10-02 07:24 | NUR ---
MUTUAL FUND SALES AGENT received Statement of Expert Evaluation. MUTUAL FUND SALES AGENT notified Judie Thomas-MAG. MUTUAL FUND SALES AGENT faxed Statement of Expert Evaluation and Consult to Judie Thomas-MAG. -CINDY Nguyễn
--- NOTE | 2019-10-02 07:43 | NUR ---
Patient resting quietly with no c/o discomfort. Respirations easy and regular. Vital signs stable. No overt distress. MUKESH JUAREZ
[2019-10-02 08:00] VITALS: BP 134/72
--- NOTE | 2019-10-02 08:15 | NUR ---
PHYSICAL THERAPY Patient seen this am 1;1 for therapy visit and was resting supine in bed upon therapist arrival. Patient presented with both increased confustion and lethargic behaviour, stating he did not sleep well last night. Patient identified by name / and transfered supine to sit EOB with MIN A. Patient needed a minute or so to fully awaken, then completed sit to stand transfer, MIN A x 1, ambulating to bathroom with use of wh walker, CGA. Patient demonstrated bouts of unsteady gait pattern with decreased stride, including POOR safety awareness in bathroom with LOB x 1. Patient also needed v/c for improved wh walker safety in tight bathroom spaces, then returned to bedside chair for a total of 20'x 2 gait distance. Patient remained in bedside chair with call light, tray table, telephone and body alarm for safety. Will continue per POC as tolerated, total treatment time 16 minutes. Darrian Hernandez, CLEANING SPECIALIST
--- NOTE | 2019-10-02 08:20 | NUR ---
OT NOTE Pt was seen this A.M. 1:1 for 20 minute OT session. Upon arrival pt was supine in bed. Pt identified by name and and had no complaints at this time. Pt transferred supine to sit EOB with Amanda for assist with UB. Sit to stand completed from bed level with Amanda and use of w/w for UE support. Functional mobility was then completed into the bathroom with CGA and use of w/w. Pt required constant verbal and tactile prompts for slowing down due to poor safety awareness and being impulsive, pt had poor carry over increasing risk of falls. Pt transferred on to standard commode with CGA and off with Amanda due to low surface. During clothing management while standing without UE support pt required Amanda to correct two retrograde LOB that occured. ModA required for walker navigation in tight spaces. Functional mobility was then completed back to the recliner with CGA and use of w/w with continued poor safety awareness. Pt was left sitting upright in the recliner with call light in hand, tray table in place, and body alarm activated for safety. Throughout entire session pt was slow to process and respond to commands requiring multiple verbal prompts throughout. Continue with rec D/C plan to SNF. NATHALY Harris/Ever
--- NOTE | 2019-10-02 08:28 | NUR ---
Spoke to son, David, at [phone] regarding discharge planning. Informed son that Dr. Scherer deemed patient incompetent to make his own medical decisions. David states he has HPOA. Discussed patient requesting to go to [facility] and with his insurance change [facility] is out of network. Patient chose [facility] and referral has been sent. Son in agreeable with discharge plan.
[2019-10-02] MEDS ORDERED: LISINOPRIL2.5 MG PO (09:02)
[2019-10-02] MEDS ORDERED: TRAD5TAB1 PO (09:02)
[2019-10-02] MEDS ORDERED: GLIMEPIRIDE4 M1 PO (09:02)
--- NOTE | 2019-10-02 10:34 | NUR ---
[facility] is out of network. TAPE RECORDING MACHINE OPERATOR faxed referral to [facility]. -MORGAN NguyễnW
[2019-10-02 12:00] VITALS: BP 129/65
--- NOTE | 2019-10-02 13:06 | NUR ---
Spoke to son, David, at [phone] regarding discharge planning. Informed patient owes [facility] $[id number] and is not able to return there until the money is paid. Son would like to know what the money is for as he did not authorize any days that would not have been paid by the insurance company. Notified social work specialist who is reaching out to [facility]. Discussed [facility] in [place] and son is agreeable.
--- NOTE | 2019-10-02 16:44 | NUR ---
PRN ZOFRAN GIVEN PT DRY HEAVING AND COMPLAINING OF NAUSEA
--- NOTE | 2019-10-02 18:14 | NUR ---
PATIENT HAD 3 EMESIS ON FLOOR BED AND TRASH. ZOFRAN DID NOT HELP.
--- NOTE | 2019-10-02 19:27 | NUR ---
PT ASSISTED UP TO BSC W/ ASSIST X3 AND BACK INTO BED AT THIS TIME. PT PULLED UP & REPOSITIONED IN BED FOR COMFORT. NEW GOWN/LINENS/BRIEF/LUCITA PROVIDED. BED LEFT LOCKED IN LOW POSITION, BED ALARM INTACT, CALL LIGHT IN REACH. WILL MONITOR.
--- NOTE | 2019-10-02 20:08 | NUR ---
PT ASLEEP IN BED AT THIS TIME. RESPIRATIONS EASY. NO S/S OF DISTRESS NOTED. WILL MONITOR. CALL LIGHT IN REACH. BED ALARM INTACT.
[2019-10-02 22:30] VITALS: BP 160/82
--- NOTE | 2019-10-02 23:50 | NUR ---
IV ZOFRAN ADMINISTERED FOR PT C/O NAUSEA WITHOUT EMESIS. PO TYLENOL ALSO GIVEN FOR RESTLESSNESS. PT DENIES PAIN AT THIS TIME, BUT IS VERY RESTLESS & FIDGETY. WILL MONITOR EFFECTIVENESS. CALL LIGHT IN REACH.
[2019-10-02 23:55] VITALS: BP 182/100
--- NOTE | 2019-10-02 23:55 | NUR ---
NOTIFIED OF PT'S MANUAL BP 182/100. NEW ORDER RECEIVED FOR 0.1 MG PO CLONIDINE X1 DOSE NOW.
[2019-10-03 02:00] VITALS: BP 148/68
[2019-10-03 07:03] LABS: CREATININE 1.65 mg/dL (0.70-1.30); POTASSIUM 4.4 mmol/L (3.5-5.1)
[2019-10-03 07:18] LABS: BASO % 0.3 % (0.0-1.0); EOS # 0.1 10*3/uL (0.0-0.4); EOS % 0.6 % (1.0-4.0); HEMATOCRIT 32.2 % (42.0-52.0); HEMOGLOBIN 10.1 g/dl (14.0-18.0); LYMPH # 1.9 10*3/uL (1.3-4.4); LYMPH % 15.4 % (27.0-41.0); MEAN CELL VOLUME 86.8 fl (80.0-94.0); MEAN CORPUSCULAR HGB 27.2 pg (27.0-31.0); MEAN CORPUSCULAR HGB CONC 31.4 g/dl (33.0-37.0); MONO # 1.1 10*3/uL (0.1-1.0); MONO % 8.5 % (3.0-9.0); NEUT # 9.4 10*3/uL (2.3-7.9); NEUT % 74.6 % (47.0-73.0); PLATELET COUNT AUTOMATED 249 10*3/uL (130-400); RED BLOOD COUNT 3.71 10*6/uL (4.50-5.90); RED CELL DISTRI WIDTH 13.7 % (0-14.5); WHITE BLOOD COUNT 12.6 10*3/uL (4.8-10.8)
--- NOTE | 2019-10-03 07:51 | NUR ---
OUTER DIAMETER GRINDER spoke with [facility]. Patient owes for [employer] days. OUTER DIAMETER GRINDER faxed patients referral to [facility] for review. PRECERT will be required for the patient. -CINDY Nguyễn
[2019-10-03 08:00] VITALS: BP 116/50
--- NOTE | 2019-10-03 08:29 | NUR ---
PATIENT TAKEN DOWN FOR SCHEDULED MRI.
[2019-10-03] MEDS ORDERED: GLIMEPIRIDE4 M1 PO (08:34)
--- NOTE | 2019-10-03 09:15 | NUR ---
PATIENT RETURNED TO ROOM AT THIS TIME.
--- NOTE | 2019-10-03 10:16 | NUR ---
PT TAKEN DOWN FOR SCHEDULED U/S.
--- NOTE | 2019-10-03 10:42 | NUR ---
Attempted to reach son, David, regarding patient discharging to [facility] today and that the $[id number] was for co-pays at [facility]. Left voicemail. Awaiting return call.
--- NOTE | 2019-10-03 10:49 | NUR ---
Spoke to son, David, and informed of patient's discharge today to [facility]. He stated he would be down this weekend. He lives in [place]. Discussed the money owed to [facility] and he would like to do more investigating into it.
--- NOTE | 2019-10-03 11:14 | NUR ---
OT NOTE Pt was seen this A.M. 1:1 for 15 mintue OT session. Upon arrival pt was supine in bed. Pt identified by name and and had no complaints at this time. Pt transferred supine to sit EOB with modA for assist with UB. Sit to stand completed from bed level with CGA and use of w/w for UE support. Functional mobility was then completed from the EOB to the bathroom with CGA and use of w/w with constant verbal prompts for slowing down due to being impulsive and poor walker safety. Pt transferred on to standard commode with Amanda due to poor safety and alignment and off with CGA. ModA required for walker navigation in tight spaces. Functional mobility was then completed back to the recliner with poor carry over of previous education. There he was left sitting reclined with call light in hand, tray table in place, and body alarm activated for safety. Continue with rec D/C plan to SNF. ANA Harris
--- NOTE | 2019-10-03 11:15 | NUR ---
Precert has been obtained for [facility]. Patient can go if medically stable. Clay Press Operator has been notified. -CINDY Nguyễn
--- NOTE | 2019-10-03 11:21 | NUR ---
PHYSICAL THERAPY TREATMENT TIME: 10:50 PM - 11:08 AM 18 MINUTES TOTAL Patient presented to therapy in supine with head of bed flat and bed alarm activated. Patient gives informed consent for treatment. Patient was identified by name and on wristband. Patient performed supine to sitting at EOB with MOD A X 1. Patient sat on EOB with SBA. Sit to stand from EOB with CGA X 1. Patient ambulated 60' x 4 with CGA X 1 with Wh Walker and no LOB and no significant SOB. Patient transferred sit<>stand out of low chair with CGA X 1. Patient transferred into bedside chair with CGA X 1 with verbal cues for putting hands back on armrests of chair to sit. Patient was left in bedside chair with call light within reach, chair alarm tested and attached to patient and LEs elevated. Patient was 1:1 with this CHURN DRILLER HELPER for 18 minutes total. SHIRLEY MATA CHURN DRILLER HELPER
[2019-10-03 12:00] VITALS: BP 122/64
--- NOTE | 2019-10-03 13:31 | NUR ---
PRECERT has been obtained. MEDICAL LABORATORY MANAGER spoke with LJ Birch. MEDICAL LABORATORY MANAGER is waiting to hear from [facility] if they are able to schedule transportation to [facility] through [facility]. -CINDY Nguyễn
--- NOTE | 2019-10-03 13:45 | NUR ---
Fran Taylor stated [facility] is able to transport the patient today at 3:30. ENERGY SYSTEMS LABORATORY DIRECTOR notified RN Queta. ENERGY SYSTEMS LABORATORY DIRECTOR spoke with patients son David, he is aware of discharge/transportation. Will fax discharge orders to [facility]. -CINDY Nguyễn
--- NOTE | 2019-10-03 15:01 | NUR ---
Discharge instructions reviewed with patient/family. Patient receptive and verbalizes understanding. Follow-up care arranged. Written instructions given to patient/family. KIRA JOYCE.
--- NOTE | 2019-10-03 15:46 | NUR ---
REPORT GIVEN TO NURSE AT [facility].
--- NOTE | 2019-10-04 08:58 | NUR ---
OCCUPATIONAL THERAPY CO-SIGN I approve of the Occupational Therapy notes written above. TYLER OSORIO OTR/Ever
--- NOTE | 2019-10-05 07:57 | NUR ---
PHYSICAL THERAPY CO-SIGN I approve of the Physical Therapy notes written above. Alpa Watkins PT
--- NOTE | 2019-10-10 08:47 | NUR ---
CINDY received call from [facility]. She needed information on the patient in order to [facility] FANS CLERK provided her with the information. -CINDY Nguyễn
== END 2019-10-03 16:47 | disposition other institution (70) | DRG 641 ==
LOC: ED 11:41 → 5E 15:10 → EDHOLD 15:10 → 5E 15:24
PROVIDERS: Nurse Practitioner Family; ADMIT Internal Medicine
DX: R62.7 Adult failure to thrive (principal); R53.1 Weakness; R07.89 Other chest pain; F03.90 Unspecified dementia, unspecified severity, without behavioral disturbance, psychotic disturbance, mood disturbance, and anxiety; K21.9 Gastro-esophageal reflux disease without esophagitis; E78.5 Hyperlipidemia, unspecified; E11.22 Type 2 diabetes mellitus with diabetic chronic kidney disease; E11.65 Type 2 diabetes mellitus with hyperglycemia; I12.9 Hypertensive chronic kidney disease with stage 1 through stage 4 chronic kidney disease, or unspecified chronic kidney disease; R41.9 Unspecified symptoms and signs involving cognitive functions and awareness; N18.3 Chronic kidney disease, stage 3 (moderate); Z60.2 Problems related to living alone; Z86.73 Personal history of transient ischemic attack (TIA), and cerebral infarction without residual deficits; Z91.14 Patient's other noncompliance with medication regimen; Z85.46 Personal history of malignant neoplasm of prostate; Z86.14 Personal history of Methicillin resistant Staphylococcus aureus infection; Z68.22 Body mass index [BMI] 22.0-22.9, adult